=== PATIENT | female | born 1955 | race Caucasian/White ===

== ENCOUNTER 2021-02-10 14:29 | Emergency (ER) | payer OTHER, SELFPAY ==
[2021-02-10 14:38] VITALS: BP 127/79; PULSE 96; RESP 20; TEMP 37.3; O2SAT 98
--- NOTE | 2021-02-10 15:22 | ED.GENADULT ---
HPI - General Adult General Chief complaint: Neck Pain/Injury Stated complaint: neck pain Time Seen by Provider: 02/10/21 14:32 Source: patient Mode of arrival: ambulatory Limitations: no limitations History of Present Illness HPI narrative: 65 y/o female. Presents to [facility] today with acute complaints of RT side neck pain, worsening in the past 72 hours. Client describes a longstanding history of neck 'muscle issues', with prior cervical spinal fusion. She tells me she believes she may have slept on the area wrong. No fevers, nuchal rigidity. No falls or neck injury has been identified. Pain is worse with quick movements or turning head to RT., No midline or posterior spinal pain. She is without additional acute c/o illness upon PE. Related Data Home Medications Medication Instructions Recorded Confirmed gabapentin 300 mg PO TID 02/10/21 02/10/21 Allergies Allergy/AdvReac Type Severity Reaction Status Date / Time No Known Allergies Allergy Verified 02/10/21 15:18 Review of Systems Review of Systems: CONSTITUTIONAL: Denies fever, chills, sweats. EYES: Denies visual changes, redness, discharge. ENT: Denies rhinorrhea, congestion, sore throat, otalgia. CARDIOVASCULAR: Denies chest pain, palpitations, edema. RESPIRATORY: Denies dyspnea, wheezing, cough GASTROINTESTINAL: Denies abdominal pain, nausea, vomiting, diarrhea. GENITOURINARY: Denies dysuria, hematuria, abnormal discharge SKIN: Denies rash or itching. MUSCULOSKELETAL: RT side neck pain. Denies acute back pain, other joint pain, or myalgia. NEUROLOGIC: Denies numbness, or focal weakness. PSYCHIATRIC: Denies anxiety or depression. All systems reviewed & are unremarkable except as noted in HPI and below Exam Narrative: GENERAL: This is a well-nourished, well-developed adult, in no apparent distress. HEAD: normocephalic, atraumatic. EYES: PERRL. Sclera clear/white. EARS: External ears normal, auditory canals clear and without drainage, TMs normal. NOSE: External nose normal. Positive Rhinorrhea, no obstruction, nares patent. THROAT: Mucous membranes moist, posterior pharynx clear. No exudates. NECK: Neck supple, non-tender without lymphadenopathy, masses or thyromegaly. With reproducible muscle spasm RT trapezius. No midline spinal tenderness. Full ROM. No meningeal signs. CARDIOVASCULAR: Regular rate and rhythm without murmurs, gallops, or rubs. RESPIRATORY: Clear to auscultation. Breath sounds equal bilaterally. No wheezes, rales, or rhonchi. GASTROINTESTINAL: Abdomen soft, non-tender, nondistended. Bowel sounds are active. No guarding. SKIN: warm, intact with no suspicious lesions or rash, good texture and turgor. NEURO: Alert, active, and age appropriate. No focal neurologic deficits. EXTREMITIES: Negative. Course Vital Signs Vital signs: Vital Signs Temperature 37.3 C 02/10/21 14:38 Pulse Rate 96 02/10/21 14:38 Respiratory Rate 20 02/10/21 14:38 Blood Pressure 127/79 02/10/21 14:38 Pulse Oximetry 98 02/10/21 14:38 Temperature 37.3 C 02/10/21 14:38 Pulse Rate 96 02/10/21 14:38 Respiratory Rate 20 02/10/21 14:38 Blood Pressure 127/79 02/10/21 14:38 Pulse Oximetry 98 02/10/21 14:38 Medical Decision Making Differential Diagnosis Differential Diagnosis: Differential Diagnosis: Consideration of the following conditions may be warranted for the presenting problem, they are not final diagnoses: Muscle sprain, strain, contusion, Other bony disruption. Vital Signs Vital Signs: Vital Signs Temperature 37.3 C 02/10/21 14:38 Pulse Rate 96 02/10/21 14:38 Respiratory Rate 20 02/10/21 14:38 Blood Pressure 127/79 02/10/21 14:38 Pulse Oximetry 98 02/10/21 14:38 Temperature 37.3 C 02/10/21 14:38 Pulse Rate 96 02/10/21 14:38 Respiratory Rate 20 02/10/21 14:38 Blood Pressure 127/79 02/10/21 14:38 Pulse Oximetry 98 02/10/21 14:38 Critical Care Time
== END 2021-02-10 15:55 | disposition home or self-care (01) ==
PROVIDERS: Emergency Provider Nurse Practitioner Adult Health; PCP Family Medicine
DX: S16.1XXA Strain of muscle, fascia and tendon at neck level, initial encounter (principal); M62.838 Other muscle spasm; X58.XXXA Exposure to other specified factors, initial encounter
CPT/HCPCS: 99213; G0463

== ENCOUNTER 2021-04-23 08:31 | Outpatient (CLI) | payer OTHER, SELFPAY ==
--- NOTE | ~2021-04-23 | MM_ITS ---
EXAMINATION: MM screening claude BI w evaristo HISTORY: Screening TECHNIQUE: Craniocaudal and mediolateral oblique 3-D tomosynthesis images were obtained and synthetic 2-D images were generated. CAD analysis was submitted and interpreted. COMPARISON: No prior mammogram is available for comparison at this institution. BREAST PARENCHYMAL COMPOSITION: There are scattered areas of fibroglandular density. FINDINGS: There is no evidence of suspicious mass, calcification, or architectural distortion to sugg est malignancy in either breast. There has been no suspicious interval change. IMPRESSION: 1. No mammographic evidence of malignancy. 2. Recommend routine screening mammography in one year. BI-RADS Category 1: Negative Reviewed, dictated and finalized at location A. [employer]
== END 2021-04-23 08:32 | disposition home or self-care (01) ==
LOC: ANHIMG 08:33
PROVIDERS: PCP Family Medicine; Visit Provider Family Medicine
DX: Z12.31 Encounter for screening mammogram for malignant neoplasm of breast (principal)
CPT/HCPCS: 77063; 77067

== ENCOUNTER 2021-06-25 08:51 | Outpatient (CLI) | payer OTHER, SELFPAY ==
--- NOTE | 2021-06-25 11:15 | NEURO_ITS ---
Impression: # Complains of pain and numbness of upper extremities. # No Carpal Tunnel Syndrome or ulnar neuropathy. # Normal nerve conduction study. # Normal needle/EMG exam. # Clinical correlation recommended. Nerve Conduction Studies Anti Sensory Summary Table Stim Site NR Peak (ms) P-T Amp (?V) Site1 Site2 Delta-P (ms) Dist (cm) Pardeep (m/s) Left Median Anti Sensory (2-3nd Digit) Wrist 2.5 48.8 Wrist 2-3nd Digit 2.5 14.0 56 Wrist 2.5 48.9 Wrist 2-3nd Digit 2.5 14.0 56 Right Median Anti Sensory (2-3nd Digit) Wrist 2.6 15.4 Wrist 2-3nd Digit 2.6 14.0 54 Wrist 2.6 32.9 Wrist 2-3nd Digit 2.6 14.0 54 Left Radial Anti Sensory (Base 1st Digit) Wrist 2.0 16.9 Wrist Base 1st Digit 2.0 0.0 Right Radial Anti Sensory (Base 1st Digit) Wrist 2.6 9.0 Wrist Base 1st Digit 2.6 0.0 Left Ulnar Anti Sensory (5th Digit) Wrist 2.1 29.0 Wrist 5th Digit 2.1 14.0 67 Right Ulnar Anti Sensory (5th Digit) Wrist 2.2 23.8 Wrist 5th Digit 2.2 14.0 64 Motor Summary Table Stim Site NR Onset (ms) O-P Amp (mV) Site1 Site2 Delta-0 (ms) Dist (cm) Pardeep (m/s) Left Median Motor (Abd Poll Brev) Wrist 3.0 5.1 Elbow Wrist 4.8 27.0 56 Elbow 7.8 3.6 Right Median Motor (Abd Poll Brev) Wrist 3.0 5.0 Elbow Wrist 4.6 26.0 57 Elbow 7.6 4.1 Left Ulnar Motor (Abd Dig Minimi) Wrist 2.3 6.7 A Elbow Wrist 4.5 27.0 60 A Elbow 6.8 5.0 Right Ulnar Motor (Abd Dig Minimi) Wrist 3.1 6.1 A Elbow Wrist 4.6 26.0 57 A Elbow 7.7 5.2 F Wave Studies NR F-Lat (ms) L-R F-Lat (ms) Left Median (Mrkrs) (Abd Poll Brev) 26.25 0.23 Right Median (Mrkrs) (Abd Poll Brev) 26.02 0.23 Left Ulnar (Mrkrs) (Abd Dig Min) 27.33 0.16 Right Ulnar (Mrkrs) (Abd Dig Min) 27.49 0.16 EMG Side Muscle Nerve Root Ins Act Fibs Amp Dur Recrt Comment Right 1stDorInt Ulnar C8-T1 Nml Nml Nml Nml Nml Right Ext Indicis Radial (Post Int) C7-8 Nml Nml Nml Nml Nml Right Ext Digitorum Radial (Post Int) C7-8 Nml Nml Nml Nml Nml Right BrachioRad Radial C5-6 Nml Nml Nml Nml Nml Right PronatorTeres Median C6-7 Nml Nml Nml Nml Nml Right Abd Poll Brev Median C8-T1 Nml Nml Nml Nml Nml Left 1stDorInt Ulnar C8-T1 Nml Nml Nml Nml Nml Left Ext Indicis Radial (Post Int) C7-8 Nml Nml Nml Nml Nml Left Ext Digitorum Radial (Post Int) C7-8 Nml Nml Nml Nml Nml Left BrachioRad Radial C5-6 Nml Nml Nml Nml Nml Left PronatorTeres Median C6-7 Nml Nml Nml Nml Nml Left Abd Poll Brev Median C8-T1 Nml Nml Nml Nml Nml MTDD
== END 2021-06-25 08:52 | disposition home or self-care (01) ==
LOC: ANHNEURO 08:52
PROVIDERS: PCP Family Medicine; Visit Provider Family Medicine
DX: G56.23 Lesion of ulnar nerve, bilateral upper limbs (principal)
CPT/HCPCS: 95886; 95911

== ENCOUNTER 2021-08-14 15:49 | Emergency (ER) | payer OTHER, SELFPAY ==
[2021-08-14 15:55] VITALS: BP 181/76; PULSE 82; RESP 20; TEMP 35.9; O2SAT 100
[2021-08-14] MEDS: ONDANSETRON HCL ODT 4 MG TABLET PO (16:08)
[2021-08-14 16:12] LABS: Glucose Point of Care 105 mg/dl (65-105)
--- NOTE | 2021-08-14 16:23 | ED.NAVMDI ---
HPI - Nausea/Vomiting/Diarrhea General Chief complaint: Nausea/Vomiting/Diarrhea Stated complaint: nausea light headed weak Time Seen by Provider: 08/14/21 16:15 Source: patient Mode of arrival: ambulatory Limitations: no limitations History of Present Illness HPI Narrative: Ms. Narvaez is a 65-year-old female patient presenting to the clinic today with complaints of nausea, vomiting, lightheadedness, ,abdominal cramping, and weakness that began approximately 4 hours ago. She reports that prior to having this episode she ate some chicken nuggets and a fish fillet from [employer]. She denies any urinary symptoms fever or chills. She denies any known exposure to anyone with COVID, strep, or flu. She denies any back pain. History of prediabetes. No history of any bowel problems or surgeries. She denies any diarrhea and her last bowel movement was earlier today. Related Data Home Medications Medication Instructions Recorded Confirmed gabapentin 300 mg capsule 300 mg PO TID 02/10/21 08/14/21 levothyroxine 100 mcg tablet 100 mcg PO DAILY 08/14/21 08/14/21 Allergies Allergy/AdvReac Type Severity Reaction Status Date / Time No Known Allergies Allergy Verified 08/14/21 16:01 Review of Systems Review of Systems: Pertinent positives per HPI. Patient denies any fever, chills, rash, headache, visual changes, dizziness, cough, runny nose, sore throat, shortness of breath, chest pain, palpitations, diarrhea, constipation, or any urinary issues. PMFSH Comments At the time of my signature, I reviewed and agree with the nursing past medical, surgical, social, and family history. There is no relevant family history pertinent to the patient complaint. Exam Narrative: General: Well-developed, well nourished, in mild apparent distress. Head: Normocephalic, atraumatic. Cardio: Regular rate and rhythm, s1 and s2 normal, no murmur appreciated. Resp: Clear to auscultation bilaterally, no rhonchi, rales, wheezing or rubs. Abdomen: Soft, pliable, bowel sounds present in all quadrants, generalized tenderness to palpation all quadrants no organomegly, no CVAT tenderness. Neuro: Conscious alert and oriented x4, no focal deficits, purposeful movements of all extremities, bilateral upper extremities and lower extremities strong and equal, sitting in wheelchair Course Course Emergency Course: Portions of this record may have been created with voice recognition software. Level of Care: Express Care Visit Vital Signs Vital signs: Vital Signs Temperature 35.9 C L 08/14/21 15:55 Pulse Rate 82 08/14/21 15:55 Respiratory Rate 20 08/14/21 15:55 Blood Pressure 181/76 H 08/14/21 15:55 Pulse Oximetry 100 08/14/21 15:55 Oxygen Delivery Room Air 08/14/21 15:55 Temperature 35.9 C L 08/14/21 15:55 Pulse Rate 82 08/14/21 15:55 Respiratory Rate 20 08/14/21 15:55 Blood Pressure 181/76 H 08/14/21 15:55 Pulse Oximetry 100 08/14/21 15:55 Oxygen Delivery Room Air 08/14/21 15:55 Vital signs reviewed Transfer Transfered to: [place] Transportation: Other (Private car) Transfer rationale: Abdominal cramping, nausea, vomiting, dizziness, weakness. Accepting physician: Dr. Grullon Transfer comments: Transfer via private car MDM - Nausea/Vomiting/Diarrhea MDM Narrative Medical decision making narrative: At the time of visit patient was resting comfortably in a wheelchair. COVID and influenza testing was negative in the clinic. Blood sugar was obtained was 105 in the clinic. Oral Zofran 4 mg ODT given in the clinic and after 15 minutes patient stated that she was feeling slightly better. Still complaining of some dizziness so 25 mg of Antivert was given orally and patient immediately had emesis. Discussed the possibility of sending the patient to the hospital to get further labs/evaluation versus sending her home with some oral Zofran and oral meclizine and have her review the ED if symptoms worsen and pa
[2021-08-14] MEDS: MECLIZINE HCL 25 MG TABLET PO (16:33)
== END 2021-08-14 16:47 | disposition short-term general hospital (02) ==
LOC: EXPBETH 15:50
PROVIDERS: Emergency Provider Nurse Practitioner Family; PCP Family Medicine
DX: R11.2 Nausea with vomiting, unspecified (principal); R10.84 Generalized abdominal pain; R42 Dizziness and giddiness; Z20.822 Contact with and (suspected) exposure to COVID-19
CPT/HCPCS: 82948; 87426; 87804; 99213; A9270; C9803; G0463

== ENCOUNTER 2021-08-14 17:26 | Observation (INO) | payer OTHER, SELFPAY ==
--- NOTE | ~2021-08-14 | MR_ITS ---
EXAMINATION: MR brain/brain stem wo/w con DATE: 08/15/2021 12:08 INDICATION: Dizziness. TECHNIQUE: Magnetic resonance imaging (MRI) of the brain and brainstem was performed without and with 15 mL MultiHance intravenous contrast. COMPARISON: Head CT 08/14/2021 FINDINGS: There are scattered areas of nonspecific increased T2-weighted signal intensity in the cere bral white matter, which is within normal limits for the patient's age. There is no intracranial hemo rrhage, acute infarction, or abnormal intracranial mass lesion. The ventricles are normal in size. Th ere are likely changes of ocular lens replacement surgeries. The mastoid air cells are normal. There is mild mucosal thickening in the paranasal sinuses. IMPRESSION: 1. Normal aging brain. Reviewed, dictated and finalized at location A. IMPRESSION: 1. Normal aging brain.
--- NOTE | ~2021-08-14 | CT_ITS ---
EXAMINATION: CT brain wo con DATE: 08/14/2021 20:37 INDICATION: Dizziness TECHNIQUE: Computed tomography (CT) of the head was performed without intravenous contrast. The mA wa s adjusted according to patient size. Iterative reconstruction technique was employed. Exam dose: 60 5.33 mGy-cm total exam DLP. COMPARISON: None FINDINGS: Bilateral carotid siphon internal carotid artery calcifications are noted. No intracranial mass lesion or hemorrhage or cerebrovascular accident is evident. No midline shift or mass effect. Normal ventricular size. No subdural or epidural hematoma is detected. Symmetric internal auditory canals. Middle and inner ear apparatus appear unremarkable. No fracture or bone destruction of the cranial vault. Included paranasal sinuses and the mastoid air cells are normally developed and aerated. IMPRESSION: Cerebral atherosclerosis No acute intracranial abnormality Reviewed, dictated and finalized at Location [facility]. Reviewed, dictated and finalized at location A.
--- NOTE | ~2021-08-14 | CT_ITS ---
EXAMINATION: CT abdomen pelvis wo con DATE: 08/14/2021 22:36 INDICATION: Abdominal pain TECHNIQUE: Computed tomography (CT) of the abdomen and pelvis was performed without intravenous contr ast. Automated exposure control and iterative reconstruction technique were employed. Exam dose: 495 .67 mGy-cm total exam DLP. COMPARISON: None. FINDINGS: Minimal dependent atelectasis, left lower lobe.. Normal heart size. No pericardial or pleural effusion. Status post cholecystectomy. No bile duct or pancreatic duct dilatation. No hepatic, splenic, pancrea tic, and adrenal or renal space-occupying mass lesion is evident on this limited noncontrast examinat ion. No urinary tract calculus or hydroureteronephrosis. There is atherosclerotic calcification but normal caliber of the abdominal aorta. There are shotty nonenlarged gastrohepatic, aortocaval, periaortic lymph nodes. Bilateral external iliac lymph nodes, measuring up to 7.5 x 12.3 mm right and 7.3 x 10.7 mm on the le ft. Small fat-containing umbilical hernia. The urinary bladder is evacuated, with minimal air in the lumen. Status post hysterectomy. Normal appendix. No bowel obstruction or intraperitoneal free air. 8 mm sclerotic lesion of T10 vertebral body, likely a bone island. Severe degenerative disc disease at L5-S1. IMPRESSION: Nonspecific shotty nonenlarged gastrohepatic, aortocaval, periaortic, external iliac lym ph nodes Status post cholecystectomy Status post hysterectomy Normal appendix Reviewed, dictated and finalized at [facility]. Reviewed, dictated and finalized at location A. IMPRESSION: Nonspecific shotty nonenlarged gastrohepatic, aortocaval, periaort ic, external iliac lymph nodes Status post cholecystectomy Status post hysterectomy Normal appendix
[2021-08-14 17:41] VITALS: BP 164/65; PULSE 75; RESP 18; TEMP 36.2; O2SAT 99
[2021-08-14 18:12] LABS: Basophils Absolute Auto 0.1 K/mm3 (0.0-0.1); Basophils Percent Auto 0.5 % (0.2-1.2); Eosinophils Percent Auto 0.3 % (0-4.4); Hematocrit 40.7 % (37.0-47.0); Hemoglobin 13.1 g/dL (12.0-15.0); Immature Granulocyte Absolute 0.03 K/mm3 (0.00-0.031); Immature Granulocyte Percent A 0.3 % (0-0.5); Lymphocytes Absolute Auto 1.17 K/mm3 (0.9-3.2); Lymphocytes Percent Auto 11.2 % (18.3-44.2); Mean Corpuscular HGB Conc 32.2 g/dl (32-36); Mean Corpuscular Hemoglobin 29.3 pg (26-34); Mean Corpuscular Volume 91.1 fl (80-100); Mean Platelet Volume 10.5 fl (7.4-10.4); Monocytes Absolute Auto 0.5 K/mm3 (0.1-0.6); Neutrophils Absolute Auto 8.6 K/mm3 (1.3-6.7); Neutrophils Percent Auto 82.7 % (45.5-73.1); Platelet Count Result 169 k/mm3 (150-375); Red Blood Count 4.47 M/mm3 (4.2-5.4); Red Cell Distribution Width 13.2 % (11.5-14.5); White Blood Count 10.4 K/mm3 (4.5-10.0)
[2021-08-14 18:22] LABS: Alanine Aminotransferase 42 U/L (6-35); Albumin Level 4.2 g/dL (3.5-5.1); Alkaline Phosphatase 168 U/L (38-126); Anion Gap 4 mmol/L (8-16); Aspartate Amino Transferase 39 U/L (14-36); Bilirubin,Total 0.4 mg/dL (0.2-1.3); Blood Urea Nitrogen 16 mg/dL (7-17); Calcium 8.7 mg/dL (8.4-10.2); Carbon Dioxide 28 mmol/L (22-30); Chloride 109 mmol/L (98-107); Estimated CRCL calculation 87 ml/min; Estimated Glomerular Filt Rate > 60; Glucose 107 mg/dL (65-110); Lipase 97 U/L (23-300); Potassium 4.5 mmol/L (3.4-5.0); Sodium 141 mmol/L (137-145)
[2021-08-14 20:08] VITALS: BP 160/77; PULSE 73; RESP 18; O2SAT 99
--- NOTE | 2021-08-14 20:25 | ED.NAVMDI ---
HPI - Nausea/Vomiting/Diarrhea General Chief complaint: Nausea/Vomiting/Diarrhea Stated complaint: n/v, headache Time Seen by Provider: 08/14/21 20:15 History of Present Illness HPI Narrative: Pt states that this afternoon while shopping she became lightheaded and dizzy and then began vomiting. Pt has mild frontal GARCES. Pt says the dizziness is worse when she turns her head back and forth and when she moves her eyes. Pt denies diarrhea. Pt has some mild epigastric abdominal pain. Related Data Home Medications Medication Instructions Recorded Confirmed gabapentin 300 mg capsule 300 mg PO TID 02/10/21 08/14/21 levothyroxine 100 mcg tablet 100 mcg PO DAILY 08/14/21 08/14/21 Allergies Allergy/AdvReac Type Severity Reaction Status Date / Time No Known Allergies Allergy Verified 08/14/21 16:01 Review of Systems Review of Systems: All systems reviewed & are unremarkable except as noted in HPI and below Exam Const: General: healthy appearing Nutritional Appearance: well nourished Orientation/consciousness: patient oriented x3 Limitations: no limitations HENMT: Head: normal to inspection Ears: external ears normal and TM's normal bilaterally (right TM bulging slightly) Mouth: Yes Normal oral and palatal mucosa present Eyes: Conjunctivae: conjunctivae normal Pupils: Equal, round and reactive pupils present EOM: EOMs intact bilaterally Neck: Neck: normal visual inspection Resp: Effort & Inspection: normal respiratory effort Auscultation: clear to auscultation bilaterally Cardio: Rate: regular rate Rhythm: regular rhythm GI: GI Palp: Yes Soft to palpation Auscultation: normal bowel sounds Skin: General skin exam: normal color Rashes: no rashes Neuro: General: patient oriented x3, moves all extremities, no meningeal signs, no focal motor deficits and CN's II-XI intact bilaterally Speech: normal speech Gait exam (Neuro): Normal gait present Other: dizziness reproduced with movement of head and fatigues when still Extrem: General: normal to inspection and no clubbing, cyanosis or edema Psych: Mental Status: mental status grossly normal Affect: normal affect Attitude: cooperative Course Course Emergency Course: tried to ambulate patient and very unsteady, concerned about safety at home. Family concerned as well. Dr Delgado came and saw patient and attempted a maneuver to open eustacian tubes to help with vertigo symptoms. pt complaining of abdominal pain moreso now, will CT abd and see how vertigo responds recheck, pt still very unsteady when trying to walk, would prefer staying in hospital overnight. Will discuss with dr delgado. dr delgado agrees to admit to observation, would like to try valium 5mg and decadron IVP Vital Signs Vital signs: Vital Signs Temperature 97.2 F L 08/14/21 17:41 Pulse Rate 75 08/14/21 17:41 Respiratory Rate 18 08/14/21 17:41 Blood Pressure 164/65 H 08/14/21 17:41 Pulse Oximetry 99 08/14/21 17:41 Oxygen Delivery Room Air 08/14/21 17:41 Temperature 97.2 F L 08/14/21 17:41 Pulse Rate 88 08/14/21 21:46 Respiratory Rate 22 H 08/14/21 21:36 Blood Pressure 162/80 H 08/14/21 21:46 Pulse Oximetry 99 08/14/21 21:36 Oxygen Delivery Room Air 08/14/21 17:41 MDM - Nausea/Vomiting/Diarrhea Lab Data Result diagrams: 08/14/21 18:06 08/14/21 18:06 Labs: Lab Results 08/14/21 08/14/21 08/14/21 Range/Units 18:06 18:06 20:16 WBC 10.4 H (4.5-10.0) K/mm3 RBC 4.47 (4.2-5.4) M/mm3 Hgb 13.1 (12.0-15.0) g/dL Hct 40.7 (37.0-47.0) % MCV 91.1 (80-100) fl MCH 29.3 (26-34) pg MCHC 32.2 (32-36) g/dl RDW 13.2 (11.5-14.5) % Plt Count 169 (150-375) k/mm3 MPV 10.5 H (7.4-10.4) fl Immature Gran % (Auto) 0.3 (0-0.5) % Neut % (Auto) 82.7 H (45.5-73.1) % Lymph % (Auto) 11.2 L (18.3-44.2) % Meagher % (Auto) 5.0 (2.6-8.5) % Eos % (Auto) 0.3 (0-4.4) % Baso % (Auto)
[2021-08-14 20:27] LABS: Appearance Urine Clear (Clear); Bilirubin Urine Negative (Negative); Blood Urine Negative (Negative); Color Urine Yellow (Yellow); Glucose Urine UA Negative (Negative); Ketones Urine Negative (Negative); Leukocyte Esterase Ur Negative LEU/UL (Negative); Nitrate Urine Negative (Negative); Protein Urine Trace mg/dL (Negative)
[2021-08-14 20:35] LABS: Mucus Urine Rare /lpf; RBC Urine 0-2 /hpf (0-2); Squamous Epithelial Cell Urine Rare /hpf (Few); WBC Urine 0-3 /hpf
[2021-08-14 20:37] LABS: Add Urine Microscopic? YES
[2021-08-14] MEDS: ONDANSETRON INJ 4 MG/2 ML VIAL IV PUSH (21:00)
[2021-08-14] MEDS: MECLIZINE HCL 25 MG TABLET 50 MG PO (21:00)
[2021-08-14 21:36] VITALS: BP 137/66; PULSE 88; RESP 22; O2SAT 99
[2021-08-14 21:42] VITALS: BP 141/77; PULSE 84
[2021-08-14 21:44] VITALS: BP 141/69; PULSE 80
[2021-08-14 21:46] VITALS: BP 162/80; PULSE 88
--- NOTE | 2021-08-14 22:32 | PC.NURSE ---
Pt to CT via stretcher at this time.
--- NOTE | 2021-08-14 23:03 | PC.NURSE ---
Report given to Gwendolyn QUINONES at this time.
--- NOTE | 2021-08-14 23:38 | PM.IMHP ---
H&P: HPI History of Present Illness Date/Time: 08/14/21 22:00 Chief Complaint: Nausea vomiting, dizziness and abdominal pain Narrative: 65-year-old female with past medical history of hypothyroidism and Review of Systems Review of Systems: 12 systems were reviewed with pertinent positives and negatives per HPI. Except as documented in the HPI, all other systems were reviewed and are negative. [facility] Past Medical History Medical History (Updated 08/15/21 @ 07:41 by Queta Andersen DO) Fibromyalgia Hypothyroidism Surgical History Surgical History (Updated 08/15/21 @ 07:41 by Queta Andersen DO) History of hysterectomy Hx of cholecystectomy Family History Family History Mother Hepatitis Liver cirrhosis Social History Social History Smoking status: Never smoker Alcohol intake: never Substance use: never Spiritual care concerns: No Meds Home Medications and Allergies Home Medications Medication Instructions Recorded Confirmed Type gabapentin 300 mg capsule 900 mg PO TID 02/10/21 08/15/21 History levothyroxine 100 mcg tablet 100 mcg PO DAILY 08/14/21 08/15/21 History ibuprofen 200 mg tablet 600 mg PO Q8H PRN Pain 08/15/21 08/15/21 History Allergies Allergy/AdvReac Type Severity Reaction Status Date / Time No Known Allergies Allergy Verified 08/14/21 16:01 Vital Signs Vital Signs - 24 hr 08/14/21 17:41 08/14/21 20:08 08/14/21 21:36 Temperature 97.2 F L Pulse Rate 75 73 88 Respiratory Rate 18 18 22 H Blood Pressure 164/65 H 160/77 H 137/66 Pulse Oximetry 99 99 99 Oxygen Delivery Room Air 08/14/21 21:42 08/14/21 21:44 08/14/21 21:46 Temperature Pulse Rate 84 80 88 Respiratory Rate Blood Pressure 141/77 H 141/69 H 162/80 H Pulse Oximetry Oxygen Delivery Exam Narrative: Weight 72.8 kg BMI 30.3 Const: Other: No acute distress, well-developed well-nourished, appears stated age HENMT: Other: Edentulous, head is normocephalic atraumatic, mucous membranes are tacky Eyes: Other: Pupils are equal and reactive, no scleral icterus, no conjunctival pallor, extraocular movements intact Neck: Other: No tender submandibular or anterior cervical lymphadenopathy, no thyromegaly Chest: Other: Clear to auscultation bilaterally, no increased work of breathing Cardio: Other: Regular rate, regular rhythm, 2+ bilateral radial pedal pulses, no JVD GI: Other: Generalized tenderness to palpation, soft, normoactive bowel sounds, no organomegaly Skin: Other: Mild pallor, non jaundice Neuro: Other: Alert and oriented, speech is clear, extraocular movements intact, no gross motor deficits, cranial nerves 2-12 grossly intact Extrem: Other: Equal actuarial technician strength bilaterally, equal lower extremities drink, no clubbing, cyanosis or edema Psych: Other: Appropriate mood and affect, pleasant and cooperative H&P: Results Labs Labs: Laboratory Tests 08/14/21 18:06 08/14/21 18:06 08/14/21 08/14/21 08/14/21 18:06 18:06 20:16 WBC 10.4 H RBC 4.47 Hgb 13.1 Hct 40.7 MCV 91.1 MCH 29.3 MCHC 32.2 RDW 13.2 Plt Count 169 MPV 10.5 H Immature Gran % (Auto) 0.3 Neut % (Auto) 82.7 H Lymph % (Auto) 11.2 L Hernando % (Auto) 5.0 Eos % (Auto) 0.3 Baso % (Auto) 0.5 Lymph # (Auto) 1.17 [place]ando # (Auto) 0.5 Eos # (Auto) 0.0 Baso # (Auto) 0.1 Abs Immat Gran (auto) 0.03 Absolute Neuts (auto) 8.6 H Absolute Nucleated RBC 0.0 Nucleated RBC % 0.0 Sodium 141 Potassium 4.5 Chloride 109 H Carbon Dioxide 28 Anion Gap 4 L BUN 16 Creatinine 0.50 L Estim Creat Clear Calc 87 Estimated GFR > 60 Glucose 107 Calcium 8.7 Total Bilirubin 0.4 AST 39 H ALT 42 H Alkaline Phosphatase 168 H Total Protein 9.0 H Albumin
[2021-08-15] MEDS: diazePAM INJ (*CRX) 10 MG/2 ML SYRINGE 5 MG IV PUSH (00:40)
[2021-08-15] MEDS: SODIUM CHLORIDE 0.9% IV 1,000 ML 150 ML IV CONT (00:40)
[2021-08-15 01:20] VITALS: BP 128/89; PULSE 75; RESP 16; O2SAT 98
[2021-08-15 01:24] LABS: Influenza A QL RT-PCR Negative (Negative); Influenza B QL RT-PCR Negative (Negative); SARS-CoV-2 RNA PCR Negative
--- NOTE | 2021-08-15 01:39 | ADMGEN ---
This patient, Pili Narvaez, was admitted to Medical Room 348-01. Patient/family oriented to hospital policies and general routines including ID bracelet, bed and alarms, visiting hours, pain management, procedures, bathroom and other care routines, personal items, smoking policy, room service/diet, and visiting hours. Information on how to activate the Rapid Response Team has been discussed. Patient/Family are encouraged to report perceived risks to care and to ask questions if they do not understand what they are told or what they should do.
[2021-08-15 01:48] VITALS: BMI 30.3
[2021-08-15 01:49] VITALS: BP 147/66; PULSE 73; RESP 18; TEMP 37; O2SAT 98
[2021-08-15 06:00] VITALS: BP 143/64; PULSE 72; RESP 20; TEMP 36.4; O2SAT 98
[2021-08-15 06:49] LABS: Basophils Percent Auto 0.3 % (0.2-1.2); Immature Granulocyte Absolute 0.04 K/mm3 (0.00-0.031); Immature Granulocyte Percent A 0.5 % (0-0.5); Lymphocytes Absolute Auto 0.73 K/mm3 (0.9-3.2); Lymphocytes Percent Auto 9.5 % (18.3-44.2); Mean Corpuscular HGB Conc 32.5 g/dl (32-36); Mean Corpuscular Hemoglobin 29.2 pg (26-34); Mean Corpuscular Volume 89.9 fl (80-100); Mean Platelet Volume 10.6 fl (7.4-10.4); Monocytes Percent Auto 0.5 % (2.6-8.5); Neutrophils Absolute Auto 6.8 K/mm3 (1.3-6.7); Neutrophils Percent Auto 89.2 % (45.5-73.1); Platelet Count Result 175 k/mm3 (150-375); Red Blood Count 4.45 M/mm3 (4.2-5.4); Red Cell Distribution Width 12.9 % (11.5-14.5); White Blood Count 7.7 K/mm3 (4.5-10.0)
[2021-08-15 07:06] LABS: Alanine Aminotransferase 34 U/L (6-35); Albumin Level 3.8 g/dL (3.5-5.1); Alkaline Phosphatase 128 U/L (38-126); Anion Gap 3 mmol/L (8-16); Aspartate Amino Transferase 31 U/L (14-36); Bilirubin,Total 0.4 mg/dL (0.2-1.3); Blood Urea Nitrogen 13 mg/dL (7-17); Calcium 8.6 mg/dL (8.4-10.2); Carbon Dioxide 26 mmol/L (22-30); Chloride 111 mmol/L (98-107); Estimated CRCL calculation 88 ml/min; Estimated Glomerular Filt Rate > 60; Glucose 141 mg/dL (65-110); Sodium 140 mmol/L (137-145)
[2021-08-15 07:51] VITALS: PULSE 89; O2SAT 96
[2021-08-15] MEDS: SODIUM CHLORIDE 0.9% IV 1,000 ML 125 ML IV CONT ×2 (09:38→18:51)
[2021-08-15] MEDS: FLUTICASONE PROPIONATE 0.05% NA SPR 16 GM BTL (*BKC) 2 SPRAY NASAL (09:45)
[2021-08-15] MEDS: ENOXAPARIN 40 MG/0.4 ML SYRINGE SUB-Q (09:47)
[2021-08-15] MEDS: LEVOTHYROXINE SODIUM 100 MCG TABLET PO (09:47)
[2021-08-15] MEDS: predniSONE 20 MG TABLET 40 MG PO (09:48)
[2021-08-15] MEDS: GABAPENTIN 300 MG CAPSULE 900 MG PO ×3 (09:50→18:52)
[2021-08-15] MEDS: MECLIZINE HCL 25 MG TABLET PO ×3 (09:51→18:52)
[2021-08-15 10:30] LABS: Hepatitis B Surface Antigen Negative (Negative)
[2021-08-15 10:48] LABS: Hepatitis C Virus Antibody Negative (Negative)
[2021-08-15 10:56] LABS: HAV RESULT Negative (Negative); Hepatitis B Core IgM Result Negative (Negative)
[2021-08-15] MEDS: ACETAMINOPHEN 325 MG TABLET 650 MG PO (13:29)
[2021-08-15 14:00] VITALS: BP 136/71; PULSE 102; RESP 18; TEMP 37; O2SAT 99
--- NOTE | 2021-08-15 14:15 | PM.IMPN ---
Progress Note: A&P Assessment and Plan (1) Vertigo: Code(s): R42 - Dizziness and giddiness Status: Acute (2) Intractable nausea and vomiting: Code(s): R11.2 - Nausea with vomiting, unspecified Status: Acute (3) Generalized abdominal pain: Code(s): R10.84 - Generalized abdominal pain Status: Acute (4) Recent URI: Code(s): J06.9 - Acute upper respiratory infection, unspecified Status: Acute (5) Eustachian tube dysfunction: Code(s): H69.80 - Other specified disorders of Eustachian tube, unspecified ear Status: Acute Plan Vertigo peripheral in nature likely due to eustachian tube dysfunction verses a viral labyrinthitis given recent rhinorrhea and frontal sinus pressure and nasal congestion. Soundly the patient may have had a recent URI causing viral pathology. Patient received a dose of meclizine and Zofran in the ER with no improvement in her symptoms. I evaluated the patient in the ER and performed manipulation of the patient's eustachian tube. This decreased the bulge of the patient's right tympanic membrane but some vertigo persisted. Patient subsequently received a dose of IV Decadron and volume in the ER. I did denies get chance to re-evaluate the patient after these medications. The patient was admitted for IV fluid hydration due to persistent nausea due to vertigo. Medically stain has been scheduled. The patient is having generalized abdominal pain has CT of the abdomen pelvis which demonstrated nonspecific shotty lymphadenopathy. I suspect the patient's abdominal pain is more due to her recent vomiting from her vertigo. Will provide p.r.n. Tylenol for patient's abdominal pain and continue IV fluids. 08/15/2021 interval history: patient continue to have symptoms and aggravated activity and complaint of nausea which is somewhat improved, patient states her visual acuity has also reduce after she had cataract surgery, CT scan of the head is negative for any acute injury further evaluate will do the MRI of the brain consult neurologist for further recommendation, patient abdominal pain is improved and had a CT scan of abdomen did not show any acute pathology, being treated with meclizine, there is also concern the patient symptoms are stemming from eustachian tube dysfunction patient was given a time dose of dexamethasone in ER continue prednisone, will start the patient on clear liquid and advance her diet as tolerated, will continue to monitor the PT OT evaluate the and further recommendation to follow, Patient has been admitted as observation status. Subjective Date/time seen: 08/15/21 14:15 HPI-planning Vertigo peripheral in nature likely due to eustachian tube dysfunction verses a viral labyrinthitis given recent rhinorrhea and frontal sinus pressure and nasal congestion.? Soundly the patient may have had a recent URI causing viral pathology.? Patient received a dose of meclizine and Zofran in the ER with no improvement in her symptoms.? I evaluated the patient in the ER and performed manipulation of the patient's eustachian tube.? This decreased the bulge of the patient's right tympanic membrane but some vertigo persisted.? Patient subsequently received a dose of IV Decadron and volume in the ER.? I did denies get chance to re-evaluate the patient after these medications.? The patient was admitted for IV fluid hydration due to persistent nausea due to vertigo.? Medically stain has been scheduled. The patient is having generalized abdominal pain has CT of the abdomen pelvis which demonstrated nonspecific shotty lymphadenopathy.? I suspect the patient's abdominal pain is more due to her recent vomiting from her vertigo.? Will provide p.r.n. Tylenol for patient's abdominal pain and continue IV fluids. 08/15/2021 interval history: patient continue to have symptoms and aggravated activity and complaint of nausea which is somewhat improved, patient states her visual a
--- NOTE | 2021-08-15 14:23 | WPDNEURCNPN ---
Assessment and Plan Assessment and plan (1) Vestibulopathy: Code(s): H81.90 - Unspecified disorder of vestibular function, unspecified ear Status: Acute Plan 1. Bedrest 2. Treatment as such 3. Possibility of the posterior circulation TIA and posterior circulation involvement has been ruled out with negative MRI of the brain will re-examine her tomorrow in the meantime she will need the medication as such Consult date: 08/15/21 Time Seen: 12:30 Reason for consult: dizziness HPI: Pili Narvaez is a 65 year old female admitted to the hospital through the emergency room where she came with the complaints of nausea vomiting and headache in addition to sensation of lightheadedness and dizziness with specific command that she becomes more dizzy when she turns her head back and forth, patient has been taking gabapentin 300 mg 3 times a day in addition to levothyroxine 100 micro g daily reportedly she is not allergic to any medication initial examination in the emergency room revealed her to be extremely dizzy with movement of the head, her vital signs were stable except blood pressure 162/80, routine lab was normal initial CT scan of the head was with only atherosclerotic changes and MRI of the brain was also normal CT scan of the abdomen done because of the complaints of abdominal discomfort which revealed nonspecific non enlarged gas to hepatic aorto caval and andres aortic lymph nodes Review of Systems Review of Systems: All systems reviewed & are unremarkable except as noted in HPI and below PMFSH Past Medical History Medical History (Updated 08/15/21 @ 14:32 by Gabriel Zavala MD) Fibromyalgia Hypothyroidism Surgical History Surgical History (Updated 08/15/21 @ 07:41 by Queta Andersen DO) History of hysterectomy Hx of cholecystectomy Family History Family History Mother Hepatitis Liver cirrhosis Social History Social History Smoking status: Never smoker Alcohol intake: never Substance use: never Spiritual care concerns: No Meds Home Medications and Allergies Home Medications Medication Instructions Recorded Confirmed Type gabapentin 300 mg capsule 900 mg PO TID 02/10/21 08/15/21 History levothyroxine 100 mcg tablet 100 mcg PO DAILY 08/14/21 08/15/21 History ibuprofen 200 mg tablet 600 mg PO Q8H PRN Pain 08/15/21 08/15/21 History Allergies Allergy/AdvReac Type Severity Reaction Status Date / Time No Known Allergies Allergy Verified 08/14/21 16:01 Vital Signs Vital Signs - 24 hr 08/14/21 17:41 08/14/21 20:08 08/14/21 21:36 Temperature 36.2 C L Pulse Rate 75 73 88 Respiratory Rate 18 18 22 H Blood Pressure 164/65 H 160/77 H 137/66 Pulse Oximetry 99 99 99 Oxygen Delivery Room Air 08/14/21 21:42 08/14/21 21:44 08/14/21 21:46 Temperature Pulse Rate 84 80 88 Respiratory Rate Blood Pressure 141/77 H 141/69 H 162/80 H Pulse Oximetry Oxygen Delivery 08/15/21 01:20 08/15/21 01:49 08/15/21 06:00 Temperature 37.0 C 36.4 C Pulse Rate 75 73 72 Respiratory Rate 16 18 20 Blood Pressure 128/89 147/66 H 143/64 H Pulse Oximetry 98 98 98 Oxygen Delivery 08/15/21 07:51 08/15/21 08:45 Temperature Pulse Rate 89 Respiratory Rate Blood Pressure Pulse Oximetry 96 Oxygen Delivery Room Air Room Air Exam Narrative: revealed her to be awake alert cooperative, head normocephalic with no cranial bruit, ear nose throat examination normal with left and point couple of beats nystagmus, neck supple with no cervical bruit no thyromegaly no lymphadenopathy, heart regular with no murmur, lungs clear with no rhonchi or crepitations, abdomen is soft nontender with no organomegaly neurological examination revealed her to be awake alert oriented x3, his speech nor dysphasic no dysarthric not dysphonic, pupils round regular reactin
[2021-08-15 20:27] VITALS: BP 142/73; PULSE 99; RESP 20; TEMP 36.8; O2SAT 99
--- NOTE | 2021-08-16 | ECHO_ITS ---
Patient Info Name: Pili Narvaez Age: 65 years : 1955 Gender: Female Ht: 61 in Wt: 160 lbs BSA: 1.79 m2 HR: 82 bpm BP: 141 / 75 mmHg Technical Quality: Good Exam Date: 08/16/2021 7:06 AM Exam Location: [facility] Patient Status: Inpatient Admit Date: 08/14/2021 Staff Ordering Physician: René Gardner MD Integration Consultant: Brenna Dugan RDCS Attending Provider: Queta Andersen DO Exam Type: CA echo doppler color flow Study Info Indications R42 - Dizziness and giddiness Complete two-dimensional, color flow and Doppler transthoracic echocardiogram is performed. Summary 1. Complete two-dimensional, color flow and Doppler transthoracic echocardiogram is performed. 2. Left ventricular chamber dimension is normal. 3. Left ventricular systolic function is normal, estimated at 55-60%. 4. The left ventricular diastolic function is grade I diastolic dysfunction. 5. E/e' 11 is mildly elevated. 6. There is mild aortic valve regurgitation. 7. There is mild to moderate mitral valve regurgitation. 8. There is trace tricuspid valve regurgitation. 9. No pulmonary hypertension, estimated pulmonary arterial systolic pressure is 21 mmHg. Left Ventricle E/e' 11 is mildly elevated. Left ventricular chamber dimension is normal. Left ventricular systolic function is normal, estimated at 55-60%. The left ventricular diastolic function is grade I diastolic dysfunction. Right Ventricle Right ventricular systolic function is normal and with normal TAPSE 1.9 cm. Right ventricular chamber dimension is normal. Left Atria Left atrial chamber dimension is normal. Right Atria Right atrial chamber dimension is normal. Aortic Valve The aortic valve is probable trileaflet. There is no aortic valve stenosis. There is mild aortic valve regurgitation. Pulmonic Valve There is no pulmonic regurgitation. Mitral Valve There is no mitral valve stenosis. There is mild to moderate mitral valve regurgitation. Tricuspid Valve There is trace tricuspid valve regurgitation. No pulmonary hypertension, estimated pulmonary arterial systolic pressure is 21 mmHg. Pericardium/Pleural There is no pericardial effusion. Inferior Vena Cava Normal inferior vena cava with >50% collapse upon inspiration consistent with normal right atrial pressure, 5 mmHg. Aorta The aortic root size at the sinus of Valsalva is normal. Left Ventricular Outflow Tract Name Value Normal LVOT 2D LVOT Diameter 2.1 cm LVOT Doppler LVOT Peak Gradient 3 mmHg LVOT Mean Gradient 2 mmHg LVOT VTI 22 cm LVOT VTI/AV VTI Ratio 0.7 LVOT Stroke Volume 75 ml LVOT CO 12.0 l/min LVOT CI 6.7 l/min/m2 Pulmonic Valve Name Value Normal PV Doppler ---
[2021-08-16] MEDS: SODIUM CHLORIDE 0.9% IV 1,000 ML 125 ML IV CONT ×3 (02:22→20:20)
[2021-08-16] MEDS: LEVOTHYROXINE SODIUM 100 MCG TABLET PO (05:50)
[2021-08-16 06:15] VITALS: BP 141/75; PULSE 94; RESP 16; TEMP 37.1; O2SAT 98
[2021-08-16 07:59] LABS: Glucose Point of Care 103 mg/dl (65-105)
[2021-08-16] MEDS: ACETAMINOPHEN 325 MG TABLET 650 MG PO (08:49)
[2021-08-16] MEDS: predniSONE 20 MG TABLET 40 MG PO (08:49)
[2021-08-16] MEDS: FLUTICASONE PROPIONATE 0.05% NA SPR 16 GM BTL (*BKC) 2 SPRAY NASAL (08:50)
[2021-08-16] MEDS: GABAPENTIN 300 MG CAPSULE 900 MG PO ×3 (08:50→17:50)
[2021-08-16] MEDS: ENOXAPARIN 40 MG/0.4 ML SYRINGE SUB-Q (08:50)
[2021-08-16] MEDS: MECLIZINE HCL 25 MG TABLET PO ×3 (08:50→17:50)
[2021-08-16 11:32] LABS: Glucose Point of Care 117 mg/dl (65-105)
[2021-08-16 14:00] VITALS: BP 135/53; PULSE 76; RESP 16; TEMP 37.2; O2SAT 99
--- NOTE | 2021-08-16 14:15 | PM.IMPN ---
Progress Note: A&P Assessment and Plan (1) Vertigo: Code(s): R42 - Dizziness and giddiness Status: Acute (2) Intractable nausea and vomiting: Code(s): R11.2 - Nausea with vomiting, unspecified Status: Acute (3) Generalized abdominal pain: Code(s): R10.84 - Generalized abdominal pain Status: Acute (4) Recent URI: Code(s): J06.9 - Acute upper respiratory infection, unspecified Status: Acute (5) Eustachian tube dysfunction: Code(s): H69.80 - Other specified disorders of Eustachian tube, unspecified ear Status: Acute Plan Vertigo peripheral in nature likely due to eustachian tube dysfunction verses a viral labyrinthitis given recent rhinorrhea and frontal sinus pressure and nasal congestion. Soundly the patient may have had a recent URI causing viral pathology. Patient received a dose of meclizine and Zofran in the ER with no improvement in her symptoms. I evaluated the patient in the ER and performed manipulation of the patient's eustachian tube. This decreased the bulge of the patient's right tympanic membrane but some vertigo persisted. Patient subsequently received a dose of IV Decadron and volume in the ER. I did denies get chance to re-evaluate the patient after these medications. The patient was admitted for IV fluid hydration due to persistent nausea due to vertigo. Medically stain has been scheduled. The patient is having generalized abdominal pain has CT of the abdomen pelvis which demonstrated nonspecific shotty lymphadenopathy. I suspect the patient's abdominal pain is more due to her recent vomiting from her vertigo. Will provide p.r.n. Tylenol for patient's abdominal pain and continue IV fluids. 08/15/2021 interval history: patient continue to have symptoms and aggravated activity and complaint of nausea which is somewhat improved, patient states her visual acuity has also reduce after she had cataract surgery, CT scan of the head is negative for any acute injury further evaluate will do the MRI of the brain consult neurologist for further recommendation, patient abdominal pain is improved and had a CT scan of abdomen did not show any acute pathology, being treated with meclizine, there is also concern the patient symptoms are stemming from eustachian tube dysfunction patient was given a time dose of dexamethasone in ER continue prednisone, will start the patient on clear liquid and advance her diet as tolerated, will continue to monitor the PT OT evaluate the and further recommendation to follow. 08/16/2021 interval history: patient continue to have symptoms and aggravated with activity and complaint of nausea which is somewhat improved, but unable to tolerate p.o. patient states her visual acuity has also reduce after she had cataract surgery, CT scan of the head is negative for any acute injury further evaluate, to further evaluate patient had MRI of the brain which is negative and ruled out posterior cerebral circulation stroke seen by neurologist, , patient abdominal pain is improved and had a CT scan of abdomen did not show any acute pathology, being treated with meclizine, there is also concern the patient symptoms are stemming from eustachian tube dysfunction patient was given one time dose of dexamethasone in ER continued prednisone, will start the patient on clear liquid and advance her diet as tolerated, will continue to monitor the PT OT evaluate the and further recommendation to follow, Patient has been admitted as observation status. Subjective Date/time seen: 08/16/21 14:15 08/16/2021 interval history: patient continue to have symptoms and aggravated with activity and complaint of nausea which is somewhat improved, but unable to tolerate p.o. patient states her visual acuity has also reduce after she had cataract surgery, CT scan of the head is negative for any acute injury further evaluate, to further evaluate patient had MRI of the b
[2021-08-16 20:46] VITALS: BP 133/59; PULSE 66; RESP 20; TEMP 36.9; O2SAT 98
[2021-08-17] MEDS: SODIUM CHLORIDE 0.9% IV 1,000 ML 125 ML IV CONT (04:55)
[2021-08-17 06:00] VITALS: BP 151/66; PULSE 65; RESP 16; TEMP 36.7; O2SAT 99
[2021-08-17] MEDS: LEVOTHYROXINE SODIUM 100 MCG TABLET PO (06:39)
[2021-08-17] MEDS: ENOXAPARIN 40 MG/0.4 ML SYRINGE SUB-Q (08:00)
[2021-08-17] MEDS: GABAPENTIN 300 MG CAPSULE 900 MG PO ×2 (08:01→12:03)
[2021-08-17] MEDS: MECLIZINE HCL 25 MG TABLET PO ×2 (08:01→12:03)
[2021-08-17] MEDS: predniSONE 20 MG TABLET 40 MG PO (08:01)
[2021-08-17] MEDS: FLUTICASONE PROPIONATE 0.05% NA SPR 16 GM BTL (*BKC) 2 SPRAY NASAL (08:02)
--- NOTE | 2021-08-17 10:01 | PM.DS ---
DS: Admitting Diagnosis Discharge Date 08/17/2021 Admitting Diagnosis dizziness nausea or vomiting DS: Discharge Diagnosis Discharge Diagnosis (1) Vertigo: Code(s): R42 - Dizziness and giddiness Status: Acute (2) Intractable nausea and vomiting: Code(s): R11.2 - Nausea with vomiting, unspecified Status: Acute (3) Generalized abdominal pain: Code(s): R10.84 - Generalized abdominal pain Status: Acute (4) Recent URI: Code(s): J06.9 - Acute upper respiratory infection, unspecified Status: Acute (5) Eustachian tube dysfunction: Code(s): H69.80 - Other specified disorders of Eustachian tube, unspecified ear Status: Acute Plan Vertigo peripheral in nature likely due to eustachian tube dysfunction verses a viral labyrinthitis given recent rhinorrhea and frontal sinus pressure and nasal congestion. Soundly the patient may have had a recent URI causing viral pathology. Patient received a dose of meclizine and Zofran in the ER with no improvement in her symptoms. I evaluated the patient in the ER and performed manipulation of the patient's eustachian tube. This decreased the bulge of the patient's right tympanic membrane but some vertigo persisted. Patient subsequently received a dose of IV Decadron and volume in the ER. I did denies get chance to re-evaluate the patient after these medications. The patient was admitted for IV fluid hydration due to persistent nausea due to vertigo. Medically stain has been scheduled. The patient is having generalized abdominal pain has CT of the abdomen pelvis which demonstrated nonspecific shotty lymphadenopathy. I suspect the patient's abdominal pain is more due to her recent vomiting from her vertigo. Will provide p.r.n. Tylenol for patient's abdominal pain and continue IV fluids. 08/15/2021 interval history: patient continue to have symptoms and aggravated activity and complaint of nausea which is somewhat improved, patient states her visual acuity has also reduce after she had cataract surgery, CT scan of the head is negative for any acute injury further evaluate will do the MRI of the brain consult neurologist for further recommendation, patient abdominal pain is improved and had a CT scan of abdomen did not show any acute pathology, being treated with meclizine, there is also concern the patient symptoms are stemming from eustachian tube dysfunction patient was given a time dose of dexamethasone in ER continue prednisone, will start the patient on clear liquid and advance her diet as tolerated, will continue to monitor the PT OT evaluate the and further recommendation to follow. 08/16/2021 interval history: patient continue to have symptoms and aggravated with activity and complaint of nausea which is somewhat improved, but unable to tolerate p.o. patient states her visual acuity has also reduce after she had cataract surgery, CT scan of the head is negative for any acute injury further evaluate, to further evaluate patient had MRI of the brain which is negative and ruled out posterior cerebral circulation stroke seen by neurologist, , patient abdominal pain is improved and had a CT scan of abdomen did not show any acute pathology, being treated with meclizine, there is also concern the patient symptoms are stemming from eustachian tube dysfunction patient was given one time dose of dexamethasone in ER continued prednisone, will start the patient on clear liquid and advance her diet as tolerated, will continue to monitor the PT OT evaluate the and further recommendation to follow, Patient has been admitted as observation status. DS: Summary Hospital Course Reason for hospitalization: HPI: 65-year-old female with past medical history of hypothyroidism and fibromyalgia who presented to the ER with sudden onset of dizziness and associated nausea and vomiting had around 1300 today.? Patient denies any activities or specific moveme
[2021-08-17 14:18] VITALS: O2SAT 96
[2021-08-17 14:23] VITALS: BP 150/68; PULSE 73; RESP 16; TEMP 36.8; O2SAT 99
== END 2021-08-17 14:30 | disposition home or self-care (01) ==
LOC: ANHED 23:20 → ANH3MED 08-15 01:27
PROVIDERS: Admitting Provider Internal Medicine; Emergency Provider Emergency Medicine; PCP Family Medicine; Visit Provider Family Medicine
DX: R11.2 Nausea with vomiting, unspecified (principal); R51.9 Headache, unspecified; R42 Dizziness and giddiness; E03.9 Hypothyroidism, unspecified; M79.7 Fibromyalgia; R10.84 Generalized abdominal pain; J06.9 Acute upper respiratory infection, unspecified; H69.81 Other specified disorders of Eustachian tube, right ear; Z20.822 Contact with and (suspected) exposure to COVID-19
CPT/HCPCS: 36415; 70450; 70553; 74176; 80053; 80074; 81001; 82948; 83690; 85025; 87426; 87502; 87804; 93306; 96360; 96361; 96372; 96374; 96375; 99213; 99285; A9270; A9577; C9803; G0378; G0379; G0463; J1100; J1650; J2405; J3360; J7030; J7512; U0003; U0005

== ENCOUNTER 2021-12-31 06:36 | Outpatient (CLI) | payer OTHER, SELFPAY ==
--- NOTE | ~2021-12-31 | MR_ITS ---
EXAMINATION: MR cervical spine wo con DATE: 12/31/2021 07:37 INDICATION: Neck pain. TECHNIQUE: Magnetic resonance imaging (MRI) of the cervical spine was performed without intravenous c ontrast. COMPARISON: None FINDINGS: There is kyphosis of cervical spine. Vertebral body heights are normal. There is mildly dec reased disc height at C4-C5 and C5-C6 and severely decreased disc height at C6-C7. The spinal cord si gnal intensity is normal. The following disc levels are specifically discussed: C2-C3: The disc does not extend beyond the endplate margin. There is no uncovertebral joint osteoarth ritis. There is moderate right facet joint osteoarthritis. There is no neural foraminal stenosis. The re is no central canal stenosis. C3-C4: The disc does not extend beyond the endplate margin. There is no uncovertebral joint osteoarth ritis. There is severe right and moderate left facet joint osteoarthritis. There is mild bilateral ne ural foraminal stenosis. There is no central canal stenosis. C4-C5: There is a central protrusion. There is moderate left uncovertebral joint osteoarthritis. Ther e is severe right and moderate left facet joint osteoarthritis. There is mild bilateral neural forami nal stenosis. There is mild central canal stenosis. C5-C6: The disc does not extend beyond the endplate margin. There is severe right and moderate left u ncovertebral joint osteoarthritis. There is severe right and moderate left facet joint osteoarthritis . There is mild right neural foraminal stenosis. There is no central canal stenosis. C6-C7: The disc is bulging. There is severe bilateral uncovertebral joint osteoarthritis. There is mo derate right and severe left facet joint osteoarthritis. There is mild bilateral neural foraminal zhen nosis. There is mild central canal stenosis with ventral indentation of the spinal cord. C7-T1: The disc does not extend beyond the endplate margin. There is no uncovertebral joint osteoarth ritis. There is severe bilateral facet joint osteoarthritis. There is mild right neural foraminal zhen nosis. There is no central canal stenosis. IMPRESSION: 1. Severe cervical spondylosis. Reviewed, dictated and finalized at location A.
== END 2021-12-31 06:37 | disposition home or self-care (01) ==
PROVIDERS: PCP Family Medicine; Visit Provider Family Medicine
DX: M54.2 Cervicalgia (principal); M43.02 Spondylolysis, cervical region
CPT/HCPCS: 72141

== ENCOUNTER 2022-05-08 08:41 | Emergency (ER) | payer OTHER, SELFPAY ==
[2022-05-08 08:48] VITALS: BP 139/74; PULSE 92; RESP 16; TEMP 37; O2SAT 98
--- NOTE | 2022-05-08 09:13 | ED.URI ---
HPI - URI/Sore Throat General Chief Complaint: Upper Respiratory Infection Stated Complaint: Ear/Nose/Throat Time Seen by Provider: 05/08/22 09:13 Source: patient, RN notes reviewed and old records reviewed Mode of arrival: ambulatory Limitations: no limitations History of Present Illness HPI Narrative: 66 year old female who presents to [facility] care with complaints of cough, sneezing, diarrhea, sore throat,for 5 days with reported fever noted on Wednesday only.. Patient reports that she has been exposed to strep from grandchildren and concerned of strep. Patient reports that she has been taking Ibuprofen for her symptoms and also Pepto Bismol for her diarrhea.Patient report one loose stool this morning, reports 6 yesterday, denies any blood in stools reports watery brown stool. MD elicited complaint: cough, sore throat, rhinorrhea, nasal congestion and other (diarrhea) Onset (ago): day(s) (5) Pain scale (0-10): 8 Able to tolerate fluids by mouth: Yes Associated symptoms: fever (wednesday), rhinorrhea, nasal congestion, sore throat, cough and other (diarrhea) Treatments prior to arrival: ibuprofen and other (Pepto Bismol) Related Data Home Medications Medication Instructions Recorded Confirmed gabapentin 300 mg capsule 900 mg PO TID 02/10/21 05/08/22 levothyroxine 100 mcg tablet 100 mcg PO DAILY 08/14/21 05/08/22 Allergies Allergy/AdvReac Type Severity Reaction Status Date / Time No Known Allergies Allergy Verified 05/08/22 09:01 Review of Systems Review of Systems: CONSTITUTIONAL: Reports malaise, chills, sweats, or fever. EYES: Denies visual changes, redness, or discharge. ENT: Reports rhinorrhea, congestion, sinus pain,no otalgia positive for sore throat. CARDIOVASCULAR: Denies chest pain, palpitations, or edema. RESPIRATORY: Reports cough.? Denies dyspnea. GASTROINTESTINAL: Denies abdominal pain, nausea, vomiting, positive for diarrhea SKIN: Denies rash or itching. MUSCULOSKELETAL: reports myalgia. NEUROLOGIC: Denies headache. All systems reviewed & are unremarkable except as noted in HPI and below PMFSH Past Medical History Medical History (Updated 05/09/22 @ 00:01 by Eugene Sanders) Fibromyalgia Hypothyroidism Surgical History Surgical History (Updated 08/15/21 @ 07:41 by Queta Andersen DO) History of hysterectomy Hx of cholecystectomy Family History Family History Mother Hepatitis Liver cirrhosis Social History Social History Smoking status: Never smoker Alcohol intake: never Substance use: never Spiritual care concerns: No Comments At time of signature, agree with nursing past medical, surgical, social and family history. There is no relevant family history pertinent to the presenting complaint Exam Narrative: GENERAL: Well-appearing, well-nourished, and in no acute distress. HEAD: Normocephalic EYES: PERRLA, conjunctivae clear ENT: Nares clear, turbinates edematous and erythematous, clear discharge. Mucous membranes moist. TM pearly cuevas with dull light reflex bilaterally; no tragal tenderness. Oropharynx erythematous without lesions. Tonsils not enlarged and without exudate, no drooling, no hoarseness, no trismus, uvula midline.post nasal drainage NECK: Supple. No lymphadenopathy CHEST: Clear to auscultation, breath sounds equal. No wheezing, rhonchi, rales, or stridor. No respiratory distress, speaks in full sentences.cough SAO2 98% on room air HEART: Regular rate and rhythm. No murmur heard. SKIN: Warm, dry, no rash. NEURO: Alert and oriented x3. PSYCH: Normal mood and affect Course Course Emergency Course: Patient is aware of diagnosis, understands and agrees to treatment plan.? Anticipatory guidance given.? Patient agrees to follow-up as directed and is aware of reasons to seek care at the emergency department. Portions of
== END 2022-05-08 09:32 | disposition home or self-care (01) ==
PROVIDERS: Emergency Provider Registered Nurse
DX: J02.9 Acute pharyngitis, unspecified (principal); R19.7 Diarrhea, unspecified; E03.9 Hypothyroidism, unspecified
CPT/HCPCS: 87081; 87880; 99213; G0463

== ENCOUNTER 2023-03-03 08:47 | Emergency (ER) | payer MEDICARE, MEDICAID, SELFPAY ==
[2023-03-03 08:55] VITALS: BP 130/64; PULSE 70; RESP 16; TEMP 36.6; O2SAT 97
--- NOTE | 2023-03-03 09:08 | ED.GENADULT ---
HPI - General Adult General Chief complaint: Urogenital-Female Stated complaint: Poss UTI Source: patient, RN notes reviewed and old records reviewed Mode of arrival: ambulatory Limitations: no limitations History of Present Illness HPI narrative: 67-year-old female presents to [facility] with complaints burning with urination, urinary frequency, lower abdominal pain that started March 01. Patient states seems to be improving this still having some symptoms. MD complaint: Burning with urination Onset (ago): day(s) (2) Related Data Home Medications Medication Instructions Recorded Confirmed gabapentin 300 mg capsule 900 mg PO TID 02/10/21 03/03/23 levothyroxine 100 mcg tablet 100 mcg PO DAILY 08/14/21 03/03/23 famotidine 20 mg tablet (Pepcid) 20 mg PO DAILY 03/03/23 03/03/23 Allergies Allergy/AdvReac Type Severity Reaction Status Date / Time No Known Allergies Allergy Verified 03/03/23 09:08 Review of Systems Constitutional: Constitutional: Reports no additional constitutional complaints, Denies body ache(s), Denies chills, Denies fatigue, Denies fever(s) and Denies headache(s) Eyes: Eyes: Reports no additional eye complaints and Denies blurry vision ENT: Reports system reviewed and no additional complaints, except as documented, Denies vertigo, Denies dizziness, Denies ear discharge, Denies otalgia, Denies facial pain, Denies headache(s), Denies nasal congestion, Denies nasal discharge, Denies sinus pain, Denies sinus pressure and Denies sore throat Cardiovascular: Cardiovascular: Reports no additional cardiovascular complaints, Denies chest pain, Denies chest pain at rest, Denies rapid heart rate and Denies dyspnea Respiratory: Respiratory: Reports no additional respiratory complaints, Denies chest congestion, Denies cough, Denies pain on inspiration, Denies pain with cough and Denies dyspnea Gastrointestinal: Gastrointestinal: Reports as per HPI, Reports abdominal pain, Denies diarrhea, Denies nausea and Denies vomiting Genitourinary: Genitourinary: Reports as per HPI, Reports nocturia and Reports dysuria Integumentary/Breasts: Skin/Breast: Denies rash Neurologic: Reports system reviewed and no additional complaints, except as documented, Denies vertigo, Denies dizziness and Denies headache(s) Endocrine: Endocrine: Denies fatigue PMFSH Past Medical History Medical History Fibromyalgia Hypothyroidism Surgical History Surgical History History of hysterectomy Hx of cholecystectomy Family History Family History Mother Hepatitis Liver cirrhosis Social History Social History Smoking status: Never smoker Alcohol intake: never Substance use: never Spiritual care concerns: No Comments At the time of my signature, I reviewed and agree with the nursing past medical, surgical, social, and family history. There is no relevant family history pertinent to the patient complaint. Exam Const: General: cooperative, healthy appearing, no acute distress and well nourished Nutritional Appearance: well nourished Orientation/consciousness: patient oriented x3 Limitations: no limitations HENMT: Head: normal to inspection and normocephalic Ears: external ears normal, TM's normal bilaterally, mastoids normal and Abnormal EAC present Face/Nose/Sinus: normal facial exam Face and sinus: normal facial exam Mouth: Yes Normal oral and palatal mucosa present, Yes oropharynx normal and Yes moist mucous membranes Throat: tonsils normal, uvula midline and no uvular edema Eyes: General: appearance normal, both eyes and all related structures Sclera: sclerae normal Pupils: Equal, round and reactive pupils present Resp: Effort & Inspection: normal respiratory effort, able to speak in comp
== END 2023-03-03 09:21 | disposition home or self-care (01) ==
PROVIDERS: Emergency Provider Registered Nurse
DX: N30.90 Cystitis, unspecified without hematuria (principal); B96.4 Proteus (mirabilis) (morganii) as the cause of diseases classified elsewhere; M79.7 Fibromyalgia; E03.9 Hypothyroidism, unspecified
CPT/HCPCS: 81003; 87077; 87086; 87186; 99213; G0463

== ENCOUNTER 2023-08-03 15:58 | Emergency (ER) | payer MEDICARE, MEDICAID, SELFPAY ==
[2023-08-03 16:08] VITALS: BP 151/77; PULSE 85; RESP 20; TEMP 36.8; O2SAT 98
--- NOTE | 2023-08-03 16:53 | ED.BACK ---
HPI - Back Pain/Injury General Chief Complaint: Back Pain/Injury Stated Complaint: back pain Time Seen by Provider: 08/03/23 16:30 Source: patient, RN notes reviewed and old records reviewed Mode of arrival: ambulatory Limitations: no limitations History of Present Illness HPI Narrative: 67 year old female presents to [facility] care with complaints of one week duration of right lower back pain with some radiation to hip at times. Patient reports also some left lower back pain with no radiation. Patient reports that she was raking in yard and then pain started with some spasming also. Patient has history of fibromyalgia dn arthritis. She states that she has been taking Tylenol arthritis for her pain with minimal decrease in pain. Patient has no midline pain or any paravertebral selling or tenderness, pain over SI joint regions. Patient denies any bowel or bladder dysfunction or any saddle paraesthesia. MD elicited complaint: back pain Pertinent past history: prior back pain Onset (ago): week(s) (1) Pain scale (0-10): 10 Location: lumbar spine Radiation: other (right upper hip at intervals) Exacerbating factors: movement and walking Treatments prior to arrival: other (Tylenol arthritis) Related Data Home Medications Medication Instructions Recorded Confirmed gabapentin 300 mg capsule 300 mg PO TID 02/10/21 08/03/23 famotidine 20 mg tablet (Pepcid) 20 mg PO DAILY 03/03/23 08/03/23 hydroxyzine HCl 25 mg tablet See Rx Instructions .Route 08/03/23 08/03/23 .COMPLEX PRN Anxiety levothyroxine 88 mcg tablet 88 mcg PO DAILY 08/03/23 08/03/23 Allergies Allergy/AdvReac Type Severity Reaction Status Date / Time No Known Allergies Allergy Verified 08/03/23 16:41 Review of Systems Review of Systems: CONSTITUTIONAL: Denies fever, chills, or sweats. CARDIOVASCULAR: Denies chest pain, palpitations, or edema. RESPIRATORY: Denies cough or dyspnea. GASTROINTESTINAL: Denies abdominal pain, nausea, vomiting, or diarrhea. GENITOURINARY: Denies dysuria or hematuria. SKIN: Denies rash or itching. MUSCULOSKELETAL: Reports bilateral lower back pain right great than left with some radiation at intervals to right upper or myalgia. NEUROLOGIC: Denies headache, numbness, or weakness. All systems reviewed & are unremarkable except as noted in HPI and below PMFSH Past Medical History Medical History (Updated 08/04/23 @ 19:58 by Corrie Barth NP) Arthritis Fibromyalgia Hypothyroidism Surgical History Surgical History History of hysterectomy Hx of cholecystectomy Family History Family History Mother Hepatitis Liver cirrhosis Social History Social History Smoking status: Never smoker Alcohol intake: never Substance use: never Spiritual care concerns: No Comments At time of signature, agree with nursing past medical, surgical, social and family history. There is no relevant family history pertinent to the presenting complaint Exam Narrative: GENERAL: Well-appearing, well-nourished, and in some acute distress related to pain. HEAD: Normocephalic, atraumatic. EYES: PERRLA and EOMI. NECK: Supple. No lymphadenopathy. CHEST: Clear to auscultation. No respiratory distress. HEART: Regular rate and rhythm. Distal pulses palpable and equal, cap refill <3 seconds ABDOMEN: Soft, nontender, nondistended, normal active bowel sounds, no palpable or pulsatile masses. No CVA tenderness MUSCULOSKELETAL: Normal range of motion and strength in all extremities; 5/5 strength with hip flexion and extension, dorsiflexion and extension, knee flexion and extension, plantar flexion and extension. Normal sensation in dermatomal distributions with sensitivity to light touch and pain. No midline back tenderness to palpation. No paraspinal tenderness. Difficult
== END 2023-08-03 17:05 | disposition home or self-care (01) ==
PROVIDERS: Emergency Provider Registered Nurse
DX: M54.50 Low back pain, unspecified (principal); M19.90 Unspecified osteoarthritis, unspecified site; M79.7 Fibromyalgia; E03.9 Hypothyroidism, unspecified
CPT/HCPCS: 99213; G0463

== ENCOUNTER 2024-01-03 04:33 | Emergency (ER) | payer OTHER, SELFPAY ==
--- NOTE | ~2024-01-03 | XR_ITS ---
Portable chest x-ray Comparison: None Clinical History: Dizziness Findings: Lungs are clear, without focal consolidation or pleural effusion. Cardiomediastinal silho uette is unremarkable. Bones and soft tissues are unremarkable. Impression: Clear lungs. Reviewed, dictated and finalized at location M. Impression: Clear lungs.
--- NOTE | ~2024-01-03 | CT_ITS ---
CT ANGIOGRAM NECK AND HEAD History: Vertigo. Technique: Axial noncontrast imaging of the brain was performed. Serial spiral axial images through t he head and neck were then obtained during arterial phase IV injection of 100 cc of Omnipaque 350. 3- D postprocessing and MIP images were then reconstructed on the remote workstation. Dose reduction jose hnique was used on this scan by utilizing automated exposure control and iterative reconstruction jose hnique. The dose-length product (DLP) was 1616.31 mGy-cm. COMPARISON: 08/14/2021 CTA neck findings: Bilateral vertebral arteries are patent. Bilateral common carotid, internal carot id, and external carotid arteries are patent. No large vessel occlusion or stenosis. No aneurysm. The proximal right internal carotid artery demonstrates 0% stenosis relative to the normal distal artery lumen diameter. The proximal left internal carotid artery demonstrates 0% stenosis relative to the n ormal distal artery lumen diameter. CTA head findings: Distal vertebral arteries, basilar artery, and posterior cerebral arteries are pat ent. Distal internal carotid arteries, middle cerebral arteries, and anterior cerebral arteries are p atent. No large vessel occlusion or stenosis. No aneurysm. Axial noncontrast images of the brain is unremarkable. No acute infarct, mass lesion, or intracranial hemorrhage seen. Gerber differentiation preserved. No mass effect or midline shift. Ventricles and sub arachnoid spaces are unremarkable. Paranasal sinuses and mastoid areas are clear. Calvarium intact. Impression: No significant vascular abnormality. Reviewed, dictated and finalized at [facility]. Impression: No significant vascular abnormality.
[2024-01-03 04:39] VITALS: BP 176/77; PULSE 87; RESP 13; TEMP 36.7; O2SAT 98
[2024-01-03 04:42] VITALS: PULSE 87
--- NOTE | 2024-01-03 04:53 | ED_ITS ---
HPI - Dizziness General Chief Complaint: Dizziness Stated Complaint: blurred vision, world spinning, vomiting Time Seen by Provider: 01/03/24 04:53 Source: patient Mode of arrival: ambulatory Limitations: no limitations History of Present Illness HPI Narrative: Patient presents with acute onset dizziness, blurred vision, and vomiting at approximately 3:00 a.m.. She initially woke up and looked at the clock and felt like her eyes were moving in all directions. Even when she closed her eyes she could feel them moving which he touched her eyelids. When she went to get up the other symptoms started. She describes it like the world is spinning. Symptoms have remained constant since. Patient went to bed (thus last known well 20:30). no confusion/ altered mental status or unilateral symptoms. no medication changes recently. She does not know if her gait was affected. She has a headache. Denies diplopia or dysarthria. No ear pain though she does have chronic tinnitus, no acute changes from this. She states this has happened once previously and she came to the emergency department for it. patient has a primary care physician. She is supposed to take get an MRI done. She had been given a referral to a neurologist but that neurologist not accept her insurance. Related Data Home Medications Medication Instructions Recorded Confirmed gabapentin 300 mg capsule 300 mg PO TID 02/10/21 08/03/23 famotidine 20 mg tablet (Pepcid) 20 mg PO DAILY 03/03/23 08/03/23 hydroxyzine HCl 25 mg tablet See Rx Instructions .Route 08/03/23 08/03/23 .COMPLEX PRN Anxiety levothyroxine 88 mcg tablet 88 mcg PO DAILY 08/03/23 08/03/23 Allergies Allergy/AdvReac Type Severity Reaction Status Date / Time No Known Allergies Allergy Verified 01/03/24 04:39 [facility] Past Medical History Medical History (Updated 01/03/24 @ 07:38 by Dorothy Garcia MD) Arthritis Edentulous Fibromyalgia Hypothyroidism Surgical History Surgical History History of hysterectomy Hx of cholecystectomy Family History Family History Mother Hepatitis Liver cirrhosis Social History Social History Smoking status: Never smoker Alcohol intake: never Substance use: never Occupation/Education: retired Spiritual care concerns: No Exam Narrative: GENERAL: Well-appearing, well-nourished, and in no acute distress. HEAD: Normocephalic, atraumatic. EYES: Non injected, non icteric ENT: Nares clear, no rhinorrhea or epistaxis. Scant bilateral effusions posterior to the tympanic membranes and mild erythema anterior to tympanic membranes but without bulging. Edentulous. NECK: Supple. CHEST: Speaking in full sentences. No respiratory distress. HEART: Regular rate and rhythm. . ABDOMEN: Soft, nondistended. EXTREMITIES: Normal range of motion. No lower extremity edema. Moves extremities x4 SKIN: Warm, dry, no rash. NEURO: No focal deficits. Alert and oriented x3. Patient performs [id number] and [id number] bilaterally without ataxia. Patient has le ft beating horizontal nystagmus. no nystagmus to the right and no vertical nystagmus. Symmetry with facial muscle engagement. No loss of the bilateral nasolabial fold. Sensation intact to gross touch and symmetric in bilateral upper and lower extremities. PSYCH: Normal mood and affect. Course Vital Signs Vital signs: Vital Signs Temperature 98.1 F 01/03/24 04:39 Pulse Rate 87 01/03/24 04:39 Respiratory Rate 13 01/03/24 04:39 Blood Pressure 176/77 H 01/03/24 04:39 Pulse Oximetry 98 01/03/24 04:39 Oxygen Delivery Room Air 01/03/24 04:39 Temperature 98.1 F 01/03/24 04:39 Pulse Rate 62 01/03/24 07:34 Respiratory Rate 14 01/03/24 07:34 Blood Pressure 136/74 01/03/24 07:34 Pulse Oximetry 99 01/03/24 07:34 Oxygen Delivery Room Air 01/03/24 04:39 MDM - Dizziness MDM Narrative Medical decision making narrative: Patient presents with report acute onset dizziness blurred vision occurring at 3:00 a.m.. Just prior to that she woke and when she looked she felt like eyes moving underneath when she touched them. She states this has happened before. In the emergency department she is afebrile with vital signs notable for hypertension. Patient has a reassuring for left beating nystagmus. cerebellar testing is normal. Initially trialed meclizine. Work up generally unremarkable. UDS with cannabinoid. Patient is reassessed at approximately 6:35 a.m.. She states her dizziness and nausea are slightly better although still present. She states her eye symptoms have resolved. Patient observed ambulating to the bathroom twice and does so with a steady gait. She is reassessed approximately 7:15 a.m. and states she is feeling much better and her symptoms have resolved. Patient discharged in stable condition with prescription for meclizine (although unclear if BPPV is exact etiology...it is possible patient turned her head to look at the clock which prompted symptoms). She is also provided referral for Neurology. Differential Diagnosis Differential diagnosis: Likely benign paroxysmal positional vertigo, orthostatic hypotension, vertebral basilar insufficiency, cerebrovascular accident, acute vestibular neuronitis and transient cerebral ischemia Medical Records Attestation: I reviewed the patient's medical records. Medical records narrative: Prior ECHO 2021: Summary 1. Complete two-dimensional, color flow and Doppler transthoracic echocardiogram is performed. 2. Left ventricular chamber dimension is normal. 3. Left ventricular systolic function is normal, estimated at 55-60%. 4. The left ventricular diastolic function is grade I diastolic dysfunction. 5. E/e' 11 is mildly elevated. 6. There is mild aortic valve regurgitation. 7. There is mild to moderate mitral valve regurgitation. 8. There is trace tricuspid valve regurgitation. 9. No pulmonary hypertension, estimated pulmonary arterial systolic pressure is 21 mmHg. Lab Data Attestation: I reviewed the patient's lab results. Lab results narrative: transaminitis, intermittently seen previously 01/03/24 05:09 01/03/24 05:09 Labs: Lab Results 01/03/24 01/03/24 Range/Units 05:09 05:58 WBC 6.7 (4.5-10.0) K/mm3 RBC 3.92 L (4.2-5.4) M/mm3 Hgb 13.3 (12.0-15.0) g/dL Hct 39.8 (37.0-47.0) % MCV 101.5 H (80-100) fl MCH 33.9 (26-34) pg MCHC 33.4 (32-36) g/dl RDW 14.7 H (11.5-14.5) % Plt Count 172 (150-375) k/mm3 MPV 10.8 H (7.4-10.4) fl Immature Gran % (Auto) 0.3 (0-0.5) % Neut % (Auto) 63.0 (45.5-73.1) % Lymph % (Auto) 26.3 (18.3-44.2) % Rowan % (Auto) 7.8 (2.6-8.5) % Eos % (Auto) 2.2 (0-4.4) % Baso % (Auto) 0.4 (0.2-1.2) % Lymph # (Auto) 1.76 (0.9-3.2) K/mm3 Rowan # (Auto) 0.5 (0.1-0.6) K/mm3 Eos # (Auto) 0.2 (0-0.3) K/mm3 Baso # (Auto) 0.0 (0.0-0.1) K/mm3 Abs Immat Gran (auto) 0.02 (0.00-0.031) K/mm3 Absolute Neuts (auto) 4.2 (1.3-6.7) K/mm3 Absolute Nucleated RBC 0.000 (0.0-0.012) K/mm3 Nucleated RBC % 0.0 (0.0-0.2) % PT 13.5 (11.1-14.7) Seconds INR 1.0 APTT 26.6 (22.3-36.8) Seconds Sodium 141 (137-145) mmol/L Potassium 3.6 (3.4-5.0) mmol/L Chloride 105 (98-107) mmol/L Carbon Dioxide 27 (22-30) mmol/L Anion Gap 9 (4-12) mmol/L BUN 14 (7-17) mg/dL Creatinine 0.60 L (0.7-1.0) mg/dL Estim Creat Clear Calc 71 ml/min Estimated GFR > 60 (59 - ) Glucose 116 H (65-110) mg/dL Calcium 8.8 (8.4-10.2) mg/dL Total Bilirubin 0.6 (0.2-1.3) mg/dL AST 58 H (14-36) U/L ALT 49 H (6-35) U/L Alkaline Phosphatase 177 H (38-126) U/L Troponin I < 0.012 (0.000-0.034) ng/mL Total Protein 9.0 H (6.3-8.2) g/dL Albumin 4.4 (3.5-5.1) g/dL Urine Color Yellow (Yellow) Urine Appearance Clear (Clear) Urine pH 7.0 (5.0-9.0) Ur Specific [place] > 1.045 H (1.001-1.035) Urine Protein Trace (Negative) mg/dL Urine Glucose (UA) Negative (Negative) mg/dL Urine Ketones Negative (Negative) mg/dL Ur Blood (Man) Negative (Negative) Urine Nitrate Negative (Negative) Urine Bilirubin Negative (Negative) Urine Urobilinogen 0.2 (<2.0) mg/dL Leukocyte Esterase Rfl Negative (Negative) CRISTA/UL Urine RBC 0-2 (0-2) /hpf Urine WBC 0-5 (0-3) /hpf Ur Squamous Epith Cells None seen (Few) /hpf Urine Bacteria None seen /hpf Urine Casts 0-2 Urine Opiates Screen Negative (Negative) Urine Methadone Screen Negative (Negative) Ur Barbiturates Screen Negative (Negative) Ur Phencyclidine Scrn Negative (Negative) Ur Amphetamine Screen Negative (Negative) U Benzodiazepines Scrn Negative (Negative) Urine Cocaine Screen Negative (Negative) U Cannabinoids Screen Positive A (Negative) Imaging Data Radiologist's impression: Impressions Head/Neck CTA 01/03/24 06:35 Impression: No significant vascular abnormality. Clear lungs. ECG Data EKG #1: Attestation: I personally reviewed and interpreted this ECG as follows: ECG completion date: 01/03/24 ECG completion time: 05:08 Prior ECG tracings: not available for review (no prior for comparison) Interpretation: normal sinus rhythm at a rate of 80 beats per minute. UT interval 185. QRS 103. QT/QTC 402/438. Incomplete RBBB given QRS less [id number]; RSR' M-shaped pattern in V1-V2; wide, slurred S wave in lateral leads (I, aVL and to a lesser extent V5-6) T-wave flattening in lead 3 but otherwise upright in normal in contiguous inferior leads 2 and AVF. T wave inversion in V2 might be physiologic or due to improper lead placement. No other T-wave inversions. Discharge Plan Discharge Clinical Impression: Vertigo, Transaminitis, Marijuana use Patient Disposition: Home, Self-Care Condition: Stable Instructions: Antibiotic Form, Vertigo (ED) Additional Instructions: You can trial the medication prescribed for your symptoms. follow-up with primary care physician or, the name of a neurologist is listed below if perhaps they take your insurance. return to the emergency department with any new or wo rsening symptoms. Prescriptions: New meclizine 25 mg tablet,chewable 25 mg PO DAILY PRN (Reason: dizziness) Qty: 20 0RF No Action gabapentin 300 mg Capsule 300 mg PO TID famotidine [Pepcid] 20 mg Tablet 20 mg PO DAILY levothyroxine 88 mcg tablet 88 mcg PO DAILY hydroxyzine HCl 25 mg tablet See Rx Instructions .ROUTE .COMPLEX PRN (Reason: Anxiety) Rx Instructions: as needed prednisone 20 mg tablet 20 mg PO BID Qty: 10 0RF cyclobenzaprine 10 mg tablet 10 mg PO TID PRN (Reason: muscle spasm) Qty: 30 0RF lidocaine 5 % adhesive patch,medicated 1 patch topical DAILY Qty: 15 0RF Rx Instructions: leave on most painful area for up to 12 hrs Follow-up/Referrals: Lucretia Mo MD [Physician] - ( neurology) PHYSICIAN NOT ON STAFF,NONSTAFF [Primary Care Provider] - Time of Disposition: 07:21
--- NOTE | 2024-01-03 04:54 | ECG_ITS ---
Test Date: 2024-01-03 05:08:24 Measurements Intervals Caret Rate: 80 P: 35 MA: 185 QRS: -8 QRSD: 103 T: 28 QT: 402 QTc: 465 Interpretive Statements SINUS RHYTHM INCOMPLETE RIGHT BUNDLE BRANCH BLOCK [90+ ms QRS DURATION, TERMINAL R IN V1/V2, 40+ ms S IN I/aVL/V4/V5/V6] No previous ECG available for comparison Electronically Signed On 01-03-2024 11:00:17 CDT by Edward Reddy M.D.
--- NOTE | 2024-01-03 05:11 | PC.NURSE ---
Pt unable to urinate at this time and politely declined straight catheterization. Pt educated by this RN on importance of providing sample. Call light within reach for pt to use when able to use restroom.
[2024-01-03] MEDS: MECLIZINE HCL 25 MG TABLET PO (05:14)
[2024-01-03 05:15] LABS: Basophils Percent Auto 0.4 % (0.2-1.2); Eosinophils Absolute Auto 0.2 K/mm3 (0-0.3); Eosinophils Percent Auto 2.2 % (0-4.4); Hematocrit 39.8 % (37.0-47.0); Hemoglobin 13.3 g/dL (12.0-15.0); Immature Granulocyte Absolute 0.02 K/mm3 (0.00-0.031); Immature Granulocyte Percent A 0.3 % (0-0.5); Lymphocytes Absolute Auto 1.76 K/mm3 (0.9-3.2); Lymphocytes Percent Auto 26.3 % (18.3-44.2); Mean Corpuscular HGB Conc 33.4 g/dl (32-36); Mean Corpuscular Hemoglobin 33.9 pg (26-34); Mean Corpuscular Volume 101.5 fl (80-100); Mean Platelet Volume 10.8 fl (7.4-10.4); Monocytes Absolute Auto 0.5 K/mm3 (0.1-0.6); Monocytes Percent Auto 7.8 % (2.6-8.5); Neutrophils Absolute Auto 4.2 K/mm3 (1.3-6.7); Platelet Count Result 172 k/mm3 (150-375); Red Blood Count 3.92 M/mm3 (4.2-5.4); Red Cell Distribution Width 14.7 % (11.5-14.5); White Blood Count 6.7 K/mm3 (4.5-10.0)
[2024-01-03 05:28] LABS: Alanine Aminotransferase 49 U/L (6-35); Albumin Level 4.4 g/dL (3.5-5.1); Alkaline Phosphatase 177 U/L (38-126); Anion Gap 9 mmol/L (4-12); Aspartate Amino Transferase 58 U/L (14-36); Bilirubin,Total 0.6 mg/dL (0.2-1.3); Blood Urea Nitrogen 14 mg/dL (7-17); Calcium 8.8 mg/dL (8.4-10.2); Carbon Dioxide 27 mmol/L (22-30); Chloride 105 mmol/L (98-107); Estimated CRCL calculation 71 ml/min; Estimated Glomerular Filt Rate > 60; Glucose 116 mg/dL (65-110); Potassium 3.6 mmol/L (3.4-5.0); Sodium 141 mmol/L (137-145)
[2024-01-03 05:29] LABS: Prothrombin Time 13.5 Seconds (11.1-14.7)
[2024-01-03 05:30] LABS: Partial Thromboplastin Time 26.6 Seconds (22.3-36.8)
[2024-01-03 05:41] LABS: Troponin I < 0.012 ng/mL (0.000-0.034)
[2024-01-03 06:07] VITALS: BP 144/67; PULSE 84; RESP 14; O2SAT 98
[2024-01-03 06:11] LABS: Add Urine Microscopic? YES; Appearance Urine Clear (Clear); Bacteria Urine None Seen /hpf; Bilirubin Urine Negative (Negative); Blood Urine Negative (Negative); Color Urine Yellow (Yellow); Glucose Urine UA Negative (Negative); Ketones Urine Negative (Negative); Leukocyte Esterase Ur Negative LEU/UL (Negative); Nitrate Urine Negative (Negative); Non Pathogenic Casts 0-2; Protein Urine Trace mg/dL (Negative); RBC Urine 0-2 /hpf (0-2); Specific Grav Ur > 1.045 (1.001-1.035); Squamous Epithelial Cell Urine None Seen /hpf (Few); Urobilinogen Urine 0.2 mg/dL (<2.0); WBC Urine 0-5 /hpf (0-3)
[2024-01-03 06:27] LABS: Amphetamine Screen Urine Negative (Negative); Barbiturate Screen Urine Negative (Negative); Benzodiazepines Screen Urine Negative (Negative); Cannabinoid Screen Urine Positive (Negative); Cocaine Screen Urine Negative (Negative); Methadone Screen Urine Negative (Negative); Opiate Screen Urine Negative (Negative); Phencyclidine Screen Urine Negative (Negative)
[2024-01-03] MEDS: diazePAM INJ (*CRX) 10 MG/2 ML SYRINGE 3 MG IV PUSH (06:44)
[2024-01-03 07:34] VITALS: BP 136/74; PULSE 62; RESP 14; O2SAT 99
== END 2024-01-03 07:35 | disposition home or self-care (01) ==
PROVIDERS: Emergency Provider Student in an Organized Health Care Education/Training Program
DX: R42 Dizziness and giddiness (principal); R74.01 Elevation of levels of liver transaminase levels; F12.90 Cannabis use, unspecified, uncomplicated; I45.10 Unspecified right bundle-branch block; M19.90 Unspecified osteoarthritis, unspecified site; M79.7 Fibromyalgia; E03.9 Hypothyroidism, unspecified
CPT/HCPCS: 36415; 70496; 70498; 71045; 80053; 80307; 81001; 84484; 85025; 85610; 85730; 93005; 96374; 99284; A9270; J3360; Q9967

== ENCOUNTER 2024-01-08 17:51 | Emergency (ER) | payer OTHER, SELFPAY ==
[2024-01-08] VITALS (8 sets, daily range): BP systolic 131–158; BP diastolic 67–88; PULSE 81–89; RESP 14–17; TEMP 36.4; O2SAT 95–97
--- NOTE | ~2024-01-08 | XR_ITS ---
XR abdomen/kub 1V DATE: 01/08/2024 20:09 INDICATION: Constipation for 4 days TECHNIQUE: 2 supine AP views COMPARISON: None FINDINGS: No bowel obstruction is evident. Moderate rectal and stool burden. The psoas shadows are intact. No visceromegaly is detected. Multiple bilateral calcified pelvic phleboliths. Status post cholecystectomy. Included skeletal structures are unremarkable. IMPRESSION: Moderate stool burden; no evidence of bowel obstruction Status post cholecystectomy Reviewed, dictated and finalized at [facility] Reviewed, dictated and finalized at [facility].
--- NOTE | 2024-01-08 19:29 | PC.NURSE ---
this rn assumed care of patient. this rn took patient report from Mirian Obrien.
--- NOTE | 2024-01-08 19:59 | PC.NURSE ---
This RN witnessed Sienna ARELLANO perform rectal exam at 1954. MD unable to release feces. See new orders for enema.
--- NOTE | 2024-01-08 20:04 | ED.GENADULT ---
HPI - General Adult General Chief complaint: Abdominal Pain Stated complaint: constipated Time Seen by Provider: 01/08/24 19:12 History of Present Illness HPI narrative: patient is a 68-year-old female who presents emergency department with chief complaint of constipation. The patient reports that she has been unable to have a bowel movement for the last several days reports that she feels though she needs to go as irritation rectal area patient denies blood reports that she has attempted take suppositories without relief. Related Data Home Medications Medication Instructions Recorded Confirmed gabapentin 300 mg capsule 300 mg PO TID 02/10/21 08/03/23 famotidine 20 mg tablet (Pepcid) 20 mg PO DAILY 03/03/23 08/03/23 hydroxyzine HCl 25 mg tablet See Rx Instructions .Route 08/03/23 08/03/23 .COMPLEX PRN Anxiety levothyroxine 88 mcg tablet 88 mcg PO DAILY 08/03/23 08/03/23 Allergies Allergy/AdvReac Type Severity Reaction Status Date / Time No Known Allergies Allergy Verified 01/08/24 17:53 Review of Systems Review of Systems: A 10 system review of systems was completed on the patient and is negative except for what is stated in the HPI. Nursing and ancillary documentation was reviewed. [facility] Past Medical History Medical History (Updated 01/08/24 @ 22:07 by Joshua El MD) Arthritis Edentulous Fibromyalgia Hypothyroidism Surgical History Surgical History History of hysterectomy Hx of cholecystectomy Family History Family History Mother Hepatitis Liver cirrhosis Social History Social History Smoking status: Never smoker Alcohol intake: never Substance use: never Occupation/Education: retired Spiritual care concerns: No Exam Narrative: GENERAL: Well-appearing, well-nourished, and in no acute distress. HEAD: Normocephalic, atraumatic. EYES: PERRLA and EOMI. ENT: Nares clear, no rhinorrhea or epistaxis. Mucous membranes moist. NECK: Supple. CHEST: Clear to auscultation. No respiratory distress. HEART: Regular rate and rhythm. No murmur heard. Normal peripheral pulses. ABDOMEN: Soft, nontender, nondistended, normal active bowel sounds. : Brown stool present soft EXTREMITIES: Normal range of motion. No edema. SKIN: Warm, dry, no rash. NEURO: No focal deficits. Alert and oriented x3. PSYCH: Normal mood and affect. Course Vital Signs Vital signs: Vital Signs Temperature 36.4 C 01/08/24 17:59 Pulse Rate 89 01/08/24 17:59 Respiratory Rate 17 01/08/24 17:59 Blood Pressure 158/88 H 01/08/24 17:59 Pulse Oximetry 97 01/08/24 17:59 Temperature 36.4 C 01/08/24 17:59 Pulse Rate 88 01/08/24 19:31 Respiratory Rate 16 01/08/24 21:53 Blood Pressure 131/67 01/08/24 21:53 Pulse Oximetry 95 01/08/24 21:53 Medical Decision Making MDM Narrative Medical decision making narrative: Diagnosis includes constipation, fecal impaction Plain film x-rays of the abdomen showed a large stool burden and constipation The patient received enema and had a large stool that is feeling much better Urinalysis showed evidence of UTI Patient will be started on Keflex and will be started on a stool softener Vital Signs Vital Signs: Vital Signs Temperature 36.4 C 01/08/24 17:59 Pulse Rate 89 01/08/24 17:59 Respiratory Rate 17 01/08/24 17:59 Blood Pressure 158/88 H 01/08/24 17:59 Pulse Oximetry 97 01/08/24 17:59 Temperature 36.4 C 01/08/24 17:59 Pulse Rate 88 01/08/24 19:31 Respiratory Rate 16 01/08/24 21:53 Blood Pressure 131/67 01/08/24 21:53 Pulse Oximetry 95 01/08/24 21:53 Lab Data Labs: Lab Results 01/08/24 Range/Units 20:11 Urine Color Dark yellow (Yellow) Urine Appearance Cloudy H (Clear) Urine pH 5.5 (5.0-9.0) Ur Specific [place] 1.040 H (1.001-1.035) Urine Protein Trace (Negative) mg/dL Urine Glucose (UA) Negative (Negative) mg/dL Urine Ketones Trace H (Negative) mg/dL Ur Blood (Man) Negative (Negative) Urine Nitrate Negative (Negative) Urine Bilirubin Negative (Negative) Urine Urobilinogen 1.0 (<2.0) mg/dL Add Ur Microanalysis Reviewed Leukocyte Esterase Rfl 1+ H (Negative) CRISTA/UL Urine RBC 3-5 H (0-2) /hpf Urine WBC 11-20 H (0-3) /hpf Ur Squamous Epith Cells Few (Few) /hpf Urine Bacteria None seen /hpf Urine Casts 0-2 Urine Mucus Present /lpf Discharge Plan Discharge Clinical Impression: Constipation, Acute UTI Patient Disposition: Home, Self-Care Condition: Stable Instructions: Antibiotic Form, Constipation (ED), Abdominal Pain (ED) Prescriptions: New docusate sodium [Colace] 100 mg capsule 100 mg PO BID Qty: 60 0RF cephalexin 500 mg capsule 500 mg PO Q12H 7 Days Qty: 14 0RF No Action gabapentin 300 mg Capsule 300 mg PO TID famotidine [Pepcid] 20 mg Tablet 20 mg PO DAILY levothyroxine 88 mcg tablet 88 mcg PO DAILY hydroxyzine HCl 25 mg tablet See Rx Instructions .ROUTE .COMPLEX PRN (Reason: Anxiety) Rx Instructions: as needed prednisone 20 mg tablet 20 mg PO BID Qty: 10 0RF cyclobenzaprine 10 mg tablet 10 mg PO TID PRN (Reason: muscle spasm) Qty: 30 0RF lidocaine 5 % adhesive patch,medicated 1 patch topical DAILY Qty: 15 0RF Rx Instructions: leave on most painful area for up to 12 hrs meclizine 25 mg tablet,chewable 25 mg PO DAILY PRN (Reason: dizziness) Qty: 20 0RF Follow-up/Referrals: Roberto Chawla MD [Physician] - UNKNOWN,DOCTOR [Primary Care Provider] - Time of Disposition: 22:08
[2024-01-08 20:29] LABS: Add Urine Microscopic? YES; Appearance Urine Cloudy (Clear); Bacteria Urine None Seen /hpf; Bilirubin Urine Negative (Negative); Blood Urine Negative (Negative); Color Urine Dark Yellow (Yellow); Glucose Urine UA Negative (Negative); Ketones Urine Trace mg/dL (Negative); Leukocyte Esterase Ur 1+ LEU/UL (Negative); Mucus Urine Present /lpf; Need Manual Microscopic Reviewed; Nitrate Urine Negative (Negative); Non Pathogenic Casts 0-2; Protein Urine Trace mg/dL (Negative); Squamous Epithelial Cell Urine Few /hpf (Few); pH Urine 5.5 (5.0-9.0)
--- NOTE | 2024-01-08 21:56 | PC.NURSE ---
patient able to have extremely large bowel movement in bedside commode. pt states she is feeling much better . pt denies abdominal pain at this time along with nausea.
== END 2024-01-08 22:16 | disposition home or self-care (01) ==
PROVIDERS: Emergency Provider Emergency Medicine
DX: K59.00 Constipation, unspecified (principal); N39.0 Urinary tract infection, site not specified; E03.9 Hypothyroidism, unspecified; M19.90 Unspecified osteoarthritis, unspecified site; M79.7 Fibromyalgia; Z90.710 Acquired absence of both cervix and uterus; Z90.49 Acquired absence of other specified parts of digestive tract; Z79.899 Other long term (current) drug therapy
CPT/HCPCS: 74018; 81001; 87086; 99283

== ENCOUNTER 2024-09-14 08:47 | Emergency (ER) | payer MEDICARE, SELFPAY ==
--- OUTSIDE RECORDS SUMMARY | 2024-09-14 08:51 | XMS_ITS | Data Portability ---
Author Organization [place] [facility] Address [address] [place] [address] Assessment Encounter Date Assessment Date Assessment LastModified by Organization Details LastModified Time 12/02/2023 12/02/2023 130/70 home typical month [email or web address] Not available 12/02/2023 12:18:41 Plan of Treatment Reminders Order Date Submit Date Provider Last Modified By Organization Details Last Modified Time Details Appointments None record ed. Lab TSH, ultra- sensit loretta, serum 2024 025 [facility], [address] [facility], [facility] [address], [place], [address], 5 12:37:12 microa lbumin /creat inine, mass ratio, urine 2024 025 [facility], [address] [facility], [facility], [place], [address], 5 12:37:08 HbA1c (hemog lobin A1c), blood 2024 025 [facility], [address] [facility], [facility], [place], [address], 5 12:37:07 CMP, serum or plasma 2024 025 [facility], [address] [facility], [address], [place], [address], 5 12:37:10 lipid panel, serum 2024 025 [facility], [address] [place] [address] 2, [place], [address], 5 12:37:09 HbA1c (hemog lobin A1c), blood 2023 024 [email or web address] [facility], [address] [place] [address] 2, [place], [address], 4 11:26:02 TSH, ultra- sensit loretta, serum 2023 024 [facility], [address] [place] [address] 2, [place], [address], 4 05:37:41 CMP, serum or plasma 2023 024 [facility], [address] [place] [address] 2, [place], [address], 4 12:38:19 TSH, ultra- sensit loretta, serum 2023 024 [facility], [address] [place] [address] 2, [place], [address], 4 12:38:20 lipid panel, serum 2023 024 [facility], [address] [place] [address] 2, [place], [address], 4 12:38:19 Referral neurol ogist referr gumaro corraltig o 2023 024 LAYNE Alexandra MD, [address] [facility], [address], [place], [address], 4 12:10:28 otolar yngolo gist referr gumaro archibald interm ittent shaynatig o 2023 024 LAYNE Kilpatrick MD, [address], [place], [address], 4 13:03:57 neurol ogist referr al [address] [facility], 3 [facility], [address], [place], [address], 4 11:30:59 Procedures None record ed. Surgeries None record ed. Imaging MRI, brain, w/o contra st 2024 025 [facility] (Cardiology & Emg), [address] [facility], [place], [address], 5 12:05:07 MAMMO, screen ing, bilate ral [address] (Cardiology & Emg), [address] [facility], [place], [address], 5 11:06:01 MRI, brain + brain stem, w/o contra st - chroni c vertig o [address] [facility] (Cardiology & Emg), [address] [place] [address], [address], 5 15:06:22 MAMMO, screen ing, bilate ral 2023 024 [facility], [address] [place], [address], 5 11:19:29 MAMMO, screen ing, bilate ral [address] (Mammography) , [address], [place], [address], 4 12:18:42 Medication Orders cyclob enzapr ine 10 mg tablet 2024 025 [facility]30314, [address], [place], [place], [id number], 5 13:10:54 hydroc hlorot hiazid e 25 mg tablet 2024 025 [facility] #46541, [address], [place], [place], [id number], 5 13:10:54 amitri ptylin e 10 mg tablet 2023 025 [facility]24751, [address], [place], [place], [id number], 5 12:18:34 ondans etron HCl 4 mg tablet 2023 025 [facility] #69177, [address], [place], [place], [id number], 5 12:18:37 hydrox yzine HCl 25 mg tablet 2023 024 [facility], [address], [place], [place], [id number], 5 12:18:05 famoti dine 20 mg tablet 2022 023 [facility], [address], [place], [place], [id number], 3 15:59:43 Patient TargetsNo targets recorded. Patient Instructions Encounter Date Encounter Id Patient Instructions Last Modified By Organization Details Last Modified Time 12/10/2022 [id number] FU 6 mo and after neuro eval. [email or web address] Not available 12/10/2022 16:05:32 06/16/2023 [id number] A healthy lifestyle: care instructions [email or web address] Not available 06/16/2023 10:27:48 FU one year and prn [email or web address] Not available 06/16/2023 10:27:33 12/02/2023 [id number] A healthy lifestyle: care instructions [email or web address] Not available 12/02/2023 14:58:22 12/16/2023 [id number] FU after MRI [email or web address] Not available 12/16/2023 11:27:48 07/26/2024 [id number] A healthy lifestyle: care instructions [email or web address] Not available 07/26/2024 13:13:03 FU 2 weeks with home BP measures [email or web address] Not available 07/26/2024 13:13:02 Reason for Referral Neurologist Referral for Shayna tigo Vertigo Referring Physician: Mirna Hurtado [facility], Encounter Date: 12/10/2022 Domain Architect Referral fo r Vertigo chronic intermittent vertigo Referring Physician: Mirna Hurtado [facility], Encounter Date: 06/16/2023 Neurologist Referral for Shayna tigo chronic vertigo Referring Physician: Mirna Hurtado [facility], Encounter Date: 12/02/2023 Results Created Date Observation Date Name Description Value Unit Range Abnormal Flag Note LastModifiedBy Organization Detail LastModifiedTime 06/16/1906/17/2023 LIPID PANEL cholesterol, total 224 mg/dL 100-19 9 above high normal Not Available [facility] ([facility]) [address] [place], [address], 06/17/2023 12:38:19 06/16/19 24 06/17/2023 LIPID PANEL triglyceride s 295 mg/dL 0-149 above high normal Not Available [facility] ([facility]) [address] [place], [address], 06/17/2023 12:38:19 06/16/19 24 06/17/2023 LIPID PANEL HDL cholesterol 41 mg/dL >39 Not Available [facility] ([facility]) [address] [facility] [place], [address], 06/17/2023 12:38:19 06/16/19 24 06/17/2023 LIPID PANEL VLDL cholesterol mitul 53 mg/dL 5-40 above high normal Not Available [facility] ([facility]) [address] [facility] [place], [address], 06/17/2023 12:38:19 06/16/19 24 06/17/2023 LIPID PANEL LDL chol calc ([facility]) 130 mg/dL 0-99 above high normal Not Available [facility] ([facility]) [address] [facility] [place], [address], 06/17/2023 12:38:19 06/16/19 24 06/17/2023 COMP. METAB OLIC PANEL (14) glucose 84 mg/dL 70-99 Not Available [facility] ([facility]) [address] [place], [address], 06/17/2023 12:38:19 06/16/19 24 06/17/2023 COMP. METAB OLIC PANEL (14) BUN 18 mg/dL 8-27 Not Available [facility] ([facility]) [address] [facility] [place], [address], 06/17/2023 12:38:19 06/16/19 24 06/17/2023 COMP. METAB OLIC PANEL (14) creatinine 0.63 mg/dL 0.57-1 .00 Not Available [facility] ([facility]) [address] [facility] [place], [address], 06/17/2023 12:38:19 06/16/19 24 06/17/2023 COMP. METAB OLIC PANEL (14) eGFR 98 mL/mi n/1.7 3 >59 Not Available [facility] ([facility]) [address] [place], [address], 06/17/2023 12:38:19 06/16/19 24 06/17/2023 COMP. METAB OLIC PANEL (14) BUN/creatini ne ratio 29 12-28 above high normal Not Available [facility] ([facility]) [address] [facility] [place], [address], 06/17/2023 12:38:19 06/16/19 24 06/17/2023 COMP. METAB OLIC PANEL (14) sodium 143 mmol/ L 134-14 4 Not Available [facility] ([facility]) [address] [facility] [place], [address], 06/17/2023 12:38:19 06/16/19 24 06/17/2023 COMP. METAB OLIC PANEL (14) potassium 4.0 mmol/ L 3.5-5. 2 Not Available [facility] ([facility]) [address] [facility] [place], [address], 06/17/2023 12:38:19 06/16/19 24 06/17/2023 COMP. METAB OLIC PANEL (14) chloride 105 mmol/ L 96-106 Not Available [facility] ([facility]) [address] [place], [address], 06/17/2023 12:38:19 06/16/19 24 06/17/2023 COMP. METAB OLIC PANEL (14) carbon dioxide, total 23 mmol/ L 20-29 Not Available [facility] ([facility]) [address] [place], [address], 06/17/2023 12:38:19 06/16/19 24 06/17/2023 COMP. METAB OLIC PANEL (14) calcium 9.0 mg/dL 8.7-10 .3 Not Available [facility] ([facility]) [address] [place], [address], 06/17/2023 12:38:19 06/16/19 24 06/17/2023 COMP. METAB OLIC PANEL (14) protein, total 7.4 g/dL 6.0-8. 5 Not Available [facility] ([facility]) [address] [facility] [place], [address], 06/17/2023 12:38:19 06/16/19 24 06/17/2023 COMP. METAB OLIC PANEL (14) albumin 4.2 g/dL 3.9-4. 9 Not Available [facility] ([facility]) [address] [facility] [place], [address], 06/17/2023 12:38:19 06/16/19 24 06/17/2023 COMP. METAB OLIC PANEL (14) globulin, total 3.2 g/dL 1.5-4. 5 Not Available [facility] ([facility]) [address] [facility] [place], [address], 06/17/2023 12:38:19 06/16/19 24 06/17/2023 COMP. METAB OLIC PANEL (14) A/G ratio 1.3 1.2-2. 2 Not Available [facility] ([facility]) [address] [facility] [place], [address], 06/17/2023 12:38:19 06/16/19 24 06/17/2023 COMP. METAB OLIC PANEL (14) bilirubin, total 0.3 mg/dL 0.0-1. 2 Not Available [facility] ([facility]) [address] [facility] [place], [address], 06/17/2023 12:38:19 06/16/19 24 06/17/2023 COMP. METAB OLIC PANEL (14) alkaline phosphatase 149 IU/L 44-121 above high normal Not Available [facility] ([facility]) [address] [facility] [place], [address], 06/17/2023 12:38:19 06/16/19 24 06/17/2023 COMP. METAB OLIC PANEL (14) AST (SGOT) 33 IU/L 0-40 Not Available [facility] ([facility]) [address] [place], [address], 06/17/2023 12:38:19 06/16/19 24 06/17/2023 COMP. METAB OLIC PANEL (14) ALT (SGPT) 33 IU/L 0-32 above high normal Not Available [facility] ([facility]) [address] [place], [address], 06/17/2023 12:38:19 06/16/19 24 06/17/2023 TSH RFX ON ABNOR MAL TO FREE T4 TSH 10.800 uIU/m L 0.450- 4.500 above high normal Not Available [facility] ([facility]) [address] [place], [address], 06/17/2023 12:38:20 06/16/19 24 06/17/2023 T4F T4,free (direct) 1.11 NG/dL 0.82-1 .77 Not Available [facility] ([facility]) [address] [place], [address], 06/17/2023 12:38:21 12/02/19 24 12/03/2023 TSH RFX ON ABNOR MAL TO FREE T4 TSH 7.870 uIU/m L 0.450- 4.500 above high normal Not Available [facility] ([facility]) [address] [place], [address], 12/03/2023 05:37:40 12/02/19 24 12/03/2023 T4F T4,free (direct) 1.00 NG/dL 0.82-1 .77 Not Available [facility] ([facility]) [address] [place], [address], 12/03/2023 05:37:41 07/27/19 25 07/27/2024 HGB A1C WITH EAG ESTIM ATION hemoglobin A1C 5.9 % 4.8-5. 6 above high normal Predi abete s: 5.7 - 6.4 Diabe luis: >6.4 Glyce oliver contr ol for adult s with diabe luis: <7.0 Not Available [facility] ([facility]) [address] [place], [address], 07/27/2024 12:37:06 07/27/19 25 07/27/2024 HGB A1C WITH EAG ESTIM ATION estim. avg glu (EAG) 123 mg/dL Not Available [facility] ([facility]) [address] [place], [address], 07/27/2024 12:37:06 07/27/19 25 07/27/2024 ALBUM IN/CR EAT RATIO , RANDO M UR creatinine, urine 259.5 mg/dL notest ab. Not Available [facility] ([facility]) [address] [place], [address], 07/27/2024 12:37:08 07/27/19 25 07/27/2024 ALBUM IN/CR EAT RATIO , RANDO M UR albumin, urine 10.3 ug/mL notest ab. Not Available [facility] ([facility]) [address] [place], [address], 07/27/2024 12:37:08 07/27/19 25 07/27/2024 ALBUM IN/CR EAT RATIO , RANDO M UR alb/creat ratio 4 mg/g_ creat 0-29 Chrystal l: 0 - 29 Moder ately incre ased: 30 - 300 Sever yvette incre ased: >300 Not Available [facility] ([facility]) [address] [place], [address], 07/27/2024 12:37:08 07/27/19 25 07/27/2024 LIPID PANEL cholesterol, total 206 mg/dL 100-19 9 above high normal Not Available [facility] ([facility]) [address] [place], [address], 07/27/2024 12:37:09 07/27/19 25 07/27/2024 LIPID PANEL triglyceride s 204 mg/dL 0-149 above high normal Not Available [facility] ([facility]) [address] [place], [address], 07/27/2024 12:37:09 07/27/19 25 07/27/2024 LIPID PANEL HDL cholesterol 44 mg/dL >39 Not Available [facility] ([facility]) [address] [place], [address], 07/27/2024 12:37:09 07/27/19 25 07/27/2024 LIPID PANEL VLDL cholesterol mitul 36 mg/dL 5-40 Not Available [facility] ([facility]) [address] [place], [address], 07/27/2024 12:37:09 07/27/19 25 07/27/2024 LIPID PANEL LDL chol calc ([facility]) 126 mg/dL 0-99 above high normal Not Available [facility] ([facility]) [address] [place], [address], 07/27/2024 12:37:09 07/27/19 25 07/27/2024 COMP. METAB OLIC PANEL (14) glucose 116 mg/dL 70-99 above high normal Not Available [facility] ([facility]) [address] [place], [address], 07/27/2024 12:37:10 07/27/19 25 07/27/2024 COMP. METAB OLIC PANEL (14) BUN 15 mg/dL 8-27 Not Available [facility] ([facility]) [address] [place], [address], 07/27/2024 12:37:10 07/27/19 25 07/27/2024 COMP. METAB OLIC PANEL (14) creatinine 0.59 mg/dL 0.57-1 .00 Not Available [facility] ([facility]) [address] [facility], [place], [address], 07/27/2024 12:37:10 07/27/19 25 07/27/2024 COMP. METAB OLIC PANEL (14) eGFR 99 mL/mi n/1.7 3 >59 Not Available [facility] ([facility]) [address] [facility], [place], [address], 07/27/2024 12:37:10 07/27/19 25 07/27/2024 COMP. METAB OLIC PANEL (14) BUN/creatini ne ratio 25 12-28 Not Available [facility] ([facility]) [address] [facility], [place], [address], 07/27/2024 12:37:10 07/27/19 25 07/27/2024 COMP. METAB OLIC PANEL (14) sodium 140 mmol/ L 134-14 4 Not Available [facility] ([facility]) [address] [facility], [place], [address], 07/27/2024 12:37:10 07/27/19 25 07/27/2024 COMP. METAB OLIC PANEL (14) potassium 3.9 mmol/ L 3.5-5. 2 Not Available [facility] ([facility]) [address] [facility], [place], [address], 07/27/2024 12:37:10 07/27/19 25 07/27/2024 COMP. METAB OLIC PANEL (14) chloride 105 mmol/ L 96-106 Not Available [facility] ([facility]) [address] [facility], [place], [address], 07/27/2024 12:37:10 07/27/19 25 07/27/2024 COMP. METAB OLIC PANEL (14) carbon dioxide, total 20 mmol/ L 20-29 Not Available [facility] ([facility]) [address] [facility], [place], [address], 07/27/2024 12:37:10 07/27/19 25 07/27/2024 COMP. METAB OLIC PANEL (14) calcium 8.8 mg/dL 8.7-10 .3 Not Available [facility] ([facility]) [address] [facility] [place], [address], 07/27/2024 12:37:10 07/27/19 25 07/27/2024 COMP. METAB OLIC PANEL (14) protein, total 7.6 g/dL 6.0-8. 5 Not Available [facility] ([facility]) [address] [facility] [place], [address], 07/27/2024 12:37:10 07/27/19 25 07/27/2024 COMP. METAB OLIC PANEL (14) albumin 4.0 g/dL 3.9-4. 9 Not Available [facility] ([facility]) [address] [facility] [place], [address], 07/27/2024 12:37:10 07/27/19 25 07/27/2024 COMP. METAB OLIC PANEL (14) globulin, total 3.6 g/dL 1.5-4. 5 Not Available [facility] ([facility]) [address] [facility] [place], [address], 07/27/2024 12:37:10 07/27/19 25 07/27/2024 COMP. METAB OLIC PANEL (14) bilirubin, total 0.2 mg/dL 0.0-1. 2 Not Available [facility] ([facility]) [address] [facility] [place], [address], 07/27/2024 12:37:10 07/27/19 25 07/27/2024 COMP. METAB OLIC PANEL (14) alkaline phosphatase 162 IU/L 44-121 above high normal Not Available [facility] ([facility]) [address] [facility] [place], [address], 07/27/2024 12:37:10 07/27/19 25 07/27/2024 COMP. METAB OLIC PANEL (14) AST (SGOT) 47 IU/L 0-40 above high normal Not Available [facility] ([facility]) [address] [place], [address], 07/27/2024 12:37:10 07/27/19 25 07/27/2024 COMP. METAB OLIC PANEL (14) ALT (SGPT) 42 IU/L 0-32 above high normal Not Available [facility] ([facility]) [address] [place], [address], 07/27/2024 12:37:10 07/27/19 25 07/27/2024 TSH RFX ON ABNOR MAL TO FREE T4 TSH 5.420 uIU/m L 0.450- 4.500 above high normal Not Available [facility] ([facility]) [address] [place], [address], 07/27/2024 12:37:12 07/27/19 25 07/27/2024 T4F T4,free (direct) 1.10 NG/dL 0.82-1 .77 Not Available [facility] ([facility]) [address] [place], [address], 07/27/2024 12:37:13 Result Notes None recorded. Problems Name Problem SNOMED Code Status Onset Date Resolution Date Notes Provider Name and Address Organization Details Recorded Time Impaired glucose toleranc e 8541828 Completed 201602/17/2017 A1C slightly elevated in context of profound acute anemia. Mirna flores MD Attn: Karo quiroga,[address] [facility], [place], [address], [place] - [facility] 7 11:20:13 Screenin g for disorder Active 2018 Mirna flores MD Attn: Karo quiroga,[address], [place], [address], [place] [facility] 9 11:39:26 Seronega tive rheumato id arthriti s 461922506 Active 2019 Mirna flores MD Attn: Accountting g,[address] [facility], [place], [address], [place] [facility] 0 18:28:06 Liver function tests outside referenc e range 011034084 Active 2019 fatty liver, followed with GI in past. 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 Neg EGD, colonosco py 08/2016. Capsular endoscopy pending. Justyn Sun MD Attn: Accountting g,[address] [facility], [place], [address], [place] [facility] 2 20:20:57 Low back pain 525464304 Active 2016 Mirna flores MD Attn: Accountting g,[address] [facility], [place], [address], [place] [facility] 7 14:22:46 Neck pain 36436872 Active 2016 MRI with severe stenosis, referred to neurosurg at [facility]; appt 06/2017 Mirna flores MD Attn: Karo g,[address], [place], [address], [facility] - [facility] 8 14:05:23 Notes:colonoscopy 08/2016 - 1 0 yr fu. Problem Notes None recorded. Procedures Surgical History Date Name Laterality Status Provider Name and Address Organization Details Recorded Time Incision & Drainage completed BOB SPENCER MD Attn: Accounting, [address], [place], [address], [facility] - [facility] 12/16/2021 16:32:42 procedure on neck completed Lakeisha Alva [place] - [place] 10/30/2021 15:00:45 Imaging Results None recorded. Procedure Notes None recorded. Medical Equipment None Reported. Allergies No known drug allergies Medications Name Sig Start Date Stop Date Status Note LastModified by Organization Details LastModified Time cyclobenzap rine 10 mg tablet Take 1 tablet(s) twice a day by oral route as needed. 2024 active Not Available Not Available Not Avai lable venlafaxine ER 75 mg capsule,ext ended release 24 hr TAKE 1 CAPSULE BY MOUTH EVERY DAY 07/26 completed Not Available Not Available Not Available clindamycin HCl 300 mg capsule 10/09 completed Not Available Not Available Not Available trazodone 50 mg tablet TAKE 1 TABLET BY MOUTH EVERY DAY NEEDED 07/26 completed Not Available Not Available Not Available ibuprofen 800 mg tablet 08/11 completed Not Available Not Available Not Available ofloxacin 0.3 % eye drops 10/30 completed Not Available Not Available Not Available hydrocodone 5 mg-acetamin ophen 325 mg tablet TAKE 1 TABLET BY MOUTH EVERY 8 HOURS NEEDED FOR PAIN 09/05 completed Not Available Not Available Not Available sucralfate 1 gram tablet Take 1 tablet 4 times a day by oral route. 08/11 completed Not Available Not Available Not Available ondansetron HCl 4 mg tablet TAKE 1 TABLET BY MOUTH EVERY 8 HOURS NEEDED 07/26 completed Not Available Not Available Not Available prednisone 20 mg tablet TAKE 1 TABLET BY MOUTH TWICE DAILY 12/01 completed Not Available Not Available Not Available peg-electro lyte solution 420 gram oral solution 10/09 completed Not Available Not Available Not Available omeprazole 40 mg capsule,del ayed release TAKE ONE CAPSULE BY MOUTH ONCE DAILY 01/20 completed Not Available Not Available Not Available tramadol 50 mg tablet 10/09 completed Not Available Not Available Not Available acetaminoph en 500 mg tablet Take 2 tablets every 8 hours by oral route. 10/30 completed Not Available Not Available Not Available ketorolac 10 mg tablet 01/20 completed Not Available Not Available Not Available ketorolac 0.5 % eye drops 10/30 completed Not Available Not Available Not Available meloxicam 7.5 mg tablet TAKE 1 TABLET BY MOUTH TWICE DAILY NEEDED 01/19 completed Not Available Not Available Not Available levothyroxi ne 100 mcg tablet TAKE 1 TABLET BY MOUTH EVERY DAY active Not Available Not Available No t Available oxycodone-a cetaminophe n 5 mg-325 mg tablet 12/26 completed Not Available Not Available Not Available levothyroxi ne 88 mcg tablet Take 1 tablet(s) every day by oral route. active Not Available Not Available No t Available famotidine 20 mg tablet Take 1 tablet(s) twice a day by oral route as needed 2024 active Not Available Not Available Not Avai lable prednisolon e acetate 1 % eye drops,suspe nsion SHAKE LIQUID AND INSTILL 1 DROP TO SURGICAL EYE THREE TIMES DAILY STARTING AFTER SURGERY 10/30 completed Not Available Not Available Not Available methotrexat e sodium 2.5 mg tablet 01/19 completed Not Available Not Available Not Available amitriptyli ne 10 mg tablet TAKE 1 TABLET BY MOUTH EVERY DAY 07/26 completed Not Available Not Available Not Available meclizine 25 mg tablet TAKE 1 TABLET BY MOUTH THREE TIMES DAILY NEEDED FOR DIZZINESS 09/05 completed Not Available Not Available Not Available benzonatate 100 mg capsule 05/27 completed Not Available Not Available Not Available levothyroxi ne 50 mcg tablet 06/25 completed Not Available Not Available Not Available cephalexin 500 mg capsule TAKE 1 CAPSULE BY MOUTH EVERY 12 HOURS FOR 7 DAYS 07/26 completed Not Available Not Available Not Available oseltamivir 75 mg capsule 05/27 completed Not Available Not Available Not Available ferrous sulfate 325 mg (65 mg iron) tablet Take one PO BID with orange juice or vitamin C tab to improve absorptio n. 01/20 completed Not Available Not Available Not Available ranitidine 150 mg tablet Take 1 tablet twice a day by oral route as needed. 08/11 completed Not Available Not Available Not Available promethazin e 25 mg tablet 10/09 completed Not Available Not Available Not Available docusate sodium 100 mg capsule TAKE 1 CAPSULE BY MOUTH TWICE DAILY active Not Available Not Available No t Available gabapentin 300 mg capsule TAKE 3 CAPSULES BY MOUTH THREE TIMES DAILY active Not Available Not Available No t Available omeprazole 20 mg capsule,del ayed release 10/09 completed Not Available Not Available Not Available folic acid 1 mg tablet 10/30 completed Not Available Not Available Not Available hydroxyzine HCl 25 mg tablet TAKE 1 TABLET BY MOUTH THREE TIMES DAILY NEEDED 07/26 completed Not Available Not Available Not Available hydrochloro thiazide 25 mg tablet Take 1 tablet every day by oral route. 2024 active Not Available Not Available Not Avai lable hydroxychlo roquine 200 mg tablet 10/30 completed Not Available Not Available Not Available methylpredn isolone 4 mg tablets in a dose pack FOLLOW PACKAGE DIRECTION S 06/25 completed Not Available Not Available Not Available ondansetron 4 mg disintegrat ing tablet 07/14 completed Not Available Not Available Not Available fluticasone propionate 50 mcg/actuati on nasal spray,suspe nsion SHAKE LIQUID AND USE 2 SPRAYS IN EACH NOSTRIL EVERY MORNING 10/30 completed Not Available Not Available Not Available sertraline 50 mg tablet TAKE 1 TABLET BY MOUTH EVERY DAY 10/30 completed Not Available Not Available Not Available dicyclomine 10 mg capsule 08/11 completed Not Available Not Available Not Available metoclopram terrance 10 mg tablet 01/20 completed Not Available Not Available Not Available amoxicillin 875 mg-potassiu m clavulanate 125 mg tablet TAKE 1 TABLET BY MOUTH EVERY 12 HOURS FOR 7 DAYS 06/15 completed Not Available Not Available Not Available meclizine 25 mg chewable tablet CHEW AND SWALLOW 1 TABLET BY MOUTH NEEDED FOR DIZZINESS 07/26 completed Not Available Not Available Not Available nitrofurant oin monohydrate /macrocryst als 100 mg capsule TAKE 1 CAPSULE BY MOUTH EVERY 12 HOURS FOR 5 DAYS WITH FOOD 04/20 completed Not Available Not Available Not Available ibuprofen 01/20 completed Not Available Not Available Not Available diclofenac 1 % topical gel APPLY 2 GRAMS EXTERNALL Y TO THE AFFECTED AREA FOUR TIMES DAILY 10/30 completed Not Available Not Available Not Available Vitals Date Recorded Body height Body mass index (BMI) Body weight Heart rate Body temperature Systolic And Diastolic Provider Name and Address Organization Details Last Updated DateTime 4 154.94 cm 31 kg/m2 78724.1 5 g 66 /min 97.2 [degF] 136/79 mm[Hg] Nanda Card MA [facility] 4 09:49:00 Date Recorded Body height Body mass index (BMI) Body weight Heart rate Body temperature Systolic And Diastolic Provider Name and Address Organization Details Last Updated DateTime 5 154.94 cm 30.6 kg/m2 53810.9 6 g 78 /min 98.2 [degF] 157/82 mm[Hg] Nanda Card MA [facility] 5 11:55:20 Date Recorded Systolic And Diastolic Provider Name and Address Organization Details Last Updated DateTime 12/02/2023 138/70 mm[Hg] Mirna Hurtado MD Attn: [address] [place], [address], [facility] 12/02/2023 12:17:45 Date Recorded Body height Body mass index (BMI) Body weight Heart rate Body temperature Systolic And Diastolic Provider Name and Address Organization Details Last Updated DateTime 4 154.94 cm 30.4 kg/m2 17675.3 7 g 80 /min 98 [degF] 149/82 mm[Hg] Nanda Card MA [facility] 4 11:49:35 Date Recorded Body height Body mass index (BMI) Body weight Heart rate Body temperature Systolic And Diastolic Provider Name and Address Organization Details Last Updated DateTime 3 154.94 cm 30.2 kg/m2 24472.7 8 g 70 /min 97.3 [degF] 133/77 mm[Hg] Nanda Card [place] 3 09:47:25 Social History Question Answer Notes LastModified by Organizat Xunlei Details LastModified Time Tobacco Smoking Status Former Smoker quit in July 2016 Mirna Lakshmi, [employer] null, [place] 07/17/2016 10:10:04 What Is Your Level Of Caffeine Consumption? Occasional Information not available 06/16/2023 What Was The Date Of Your Most Recent Tobacco Screening? 07/26/2024 Information not available 07/26/2024 What Is Your Relationship Status? Information not available 11/27/2021 Are You Sexually Active? No Information not available 11/27/2021 Has Tobacco Cessation Counseling Been Provided? Yes [email or web address] Information not available 10/02/2021 On What Date Was Tobacco Cessation Counseling Provided? 12/12/2021 Information not available 12/12/2021 How Many Years Have You Smoked Tobacco? 5 [email or web address] Information not available 07/17/2016 Sex: Female Functional Status Question Answer Note LastModified by Organizat ion Details LastModified Time Do you use any illicit or recreational drugs? No Information not available 06/16/2023 What is your level of alcohol consumption? None Information not available 11/27/2021 Are you currently employed? No retired Information not available 11/27/2021 Mental Status None recorded. Family History Relationship Description Onset Age of this Age Resolved Age Notes LastModified by Organization Details LastModified Time Mother Diabetes mellitus [email or web address] Not available 2016 10:09:47 Medical History Condition Response Coronary Artery Disease N Other N Atrial Fibrillation N High Blood Pressure N Kidney or Bladder Problems N Thyroid Problems N GI Problems N Depression N COPD N Blood Clots N Skin Problems N Anemia N Heart Attack (IA) N Anxiety Disorder N Diabetes N Muscle, Joint, or Bone Problems Y Seizures/Epilepsy N Acid Reflux (GERD) N Cancer N Stroke N Asthma N Allergies N High Cholesterol N Hepatitis N Liver Disease N Headaches Y Heart Failure N Osteoporosis N Gynecological History Statement/Question Response Menses Monthly N Age at Menarche 14 Current Control Method Hysterectom y Date of Last Mammogram Age at First Child 21 Obstetrics History GPAL:G 5 P 4 0 1 4 Type Value Full Term 4 Spontaneous 1 Living 4 Total 5 Immunizations Vaccine Type Date Status Note Provider Nam e and Address Organization Details Recorded Time zoster recombinant 2 completed BOB SPENCER MD Attn: [address] [place], [place], [address] [place] [address], [place] [facility] 11/27/2021 14:45:21 Influenza, split virus, trivalent, preservative 1 completed BOB SPENCER MD Attn: [address] [place], [address] [place] [address], [place] [facility] 11/27/2021 14:45:21 COVID-19, mRNA, LNP-S, PF, 30 mcg/0.3 mL dose 1 completed BOB SPENCER MD Attn: [address] [place], [address] [place] [address], [place] [facility] 11/27/2021 14:45:21 COVID-19, mRNA, LNP-S, PF, 30 mcg/0.3 mL dose, tari-sucrose 2 completed BOB SPENCER MD Attn: [address] [place], [address] [place] [address], [place] [facility] 11/27/2021 14:45:21 COVID-19, mRNA, LNP-S, PF, 30 mcg/0.3 mL dose 1 completed BOB SPENCER MD Attn: [address] [place], [address] [place] [address], [place] [facility] 11/27/2021 14:45:21 influenza, unspecified formulation 0 completed Not Available [facility] 07/26/2024 11:51:53 Influenza, MDCK, quadrivalent, PF 3 completed Not Available [facility] 07/26/2024 11:51:53 COVID-19, mRNA, LNP-S, bivalent, PF, 30 mcg/0.3 mL dose 3 completed Not Available [facility] 07/26/2024 11:51:53 zoster recombinant 3 completed Not Available [facility] 07/26/2024 11:51:53 Influenza, high-dose, quadrivalent, PF 3 completed Not Available [facility] 07/26/2024 11:51:53 Influenza, split virus, quadrivalent, preservative 9 completed Not Available [facility] 03/25/2019 02:39:49 Influenza, split virus, quadrivalent, preservative 0 completed Brittnee Argueta [place] null, [place] 12/26/2019 13:04:25 Tdap 2 completed BOB SPENCER MD Attn: [address] [place], [address], [facility] - [facility] 12/02/2021 19:22:23 Pneumococcal conjugate PCV20, polysaccharide [id number] conjugate, adjuvant, PF 3 completed Mirna Hurtado MD Attn: [address] [place], [address], [facility] - [facility] 12/10/2022 15:59:43 Influenza, split virus, trivalent, preservative 4 completed Nanda Card [place], [place] 12/02/2023 15:48:29 Influenza, split virus, quadrivalent, preservative 7 completed Ling Sampson [place] null, [place] 01/20/2017 11:11:22 Past Encounters Encounter ID Performer Location Encounter Start Date Encounter Closed Date Diagnosis/Indication Diagnosis SNOMED-CT Code Diagnosis ICD10 Code Diagnosis Note [id number] Mirna marshall MD [facility] (Adult Med) [address] [place] [address] 07/17/2016 09:54:16 07/17/2016 10:39:43 Abdominal pain 24971250 R10.9 Elevated blood-pressure reading without diagnosis of hypertension 357005424 R03.0 Screening for disorder 252824838 Z13.9 Normotensi ve in ER [id number] Mirna marshall MD [facility] (Adult Med) [address] [place] [address] 07/29/2016 09:54:20 07/29/2016 11:56:38 Anemia 426192580 D64.9 Suspect GI loss - GI eval scheduled tomorrow. Hypothyroidism 68723224 E03.9 Right uppe r quadrant pain 255609569 R10.11 Suspect biliary colic, US GB with sludge. Will schedule to see surgery but not optimal surg candidate until eval for source of blood loss. Elevated blood-pressure reading without diagnosis of hypertension 046826420 R03.0 BP high last two visits. Suspect HTN. Plan start medication next visit. Depressive disorder 3548 9007 F32.9 +PHQ, hx deression suboptimal ly treated with medication in past. Wants pursue counseling . [id number] Mirna marshall MD [facility] (Adult Med) [address] [place] [address] 08/14/2016 10:27:28 08/14/2016 10:59:55 Near syncope 387498483 R55 Orthostati c sx? EKG pending. Holter vs stress? Anemia 275982738 D64.9 Suspect GI loss - GI procedures 08/19 Biliary colic 90843270 K 80.50 Suspect colic and abnl CBD on US/CT. Gen surg eval pending. [id number] Mirna marshall MD [facility] (Adult Med) [address] [place] [address] 09/09/2016 11:44:36 09/09/2016 14:20:26 Neck pain 74266885 M54.2 Non radicular, no red flags Low back pain 364399944 M54.5 Doubt radicular. No red flags Right uppe r quadrant pain 146359922 R10.11 Suspect biliary colic, US GB with sludge. Pt to re schedule with general surg. after capsule. Anemia 106691279 D64.9 Improved on oral Fe. Will continue until after GB surg then stop. If persistent anemia off Fe, refer to heme onc. [id number] Mirna marshall MD [facility] (Adult Med) [address] [place] [address] 10/09/2016 09:47:48 10/09/2016 14:21:58 Biliary colic 30419725 K80.50 I reschedawilda d her appointmen t with Dr. Hess for Oct 19 at 100 and gave her info. Chronic neck pain 864552 6443 107 M54.2 Continue with PT Chronic low back pain 27 3895644 M54.5 Continue with PT [id number] Mirna marshall MD [facility] (Adult Med) [address] [place] [address] 01/20/2017 10:55:23 01/20/2017 11:35:26 Generalized aches and pains 36884619 R52 Advised regular aerobic activity, good sleep hygeine. Risks, benefits side effects and time to onset medication reviewed. Indigestion 788282977 K3 0 [id number] Mirna marshall MD [facility] (Adult Med) [address] [place] [address] 02/17/2017 10:42:34 02/17/2017 13:08:03 Cervical radiculitis 78754763 M54.12 Start gabapentin at hs and add am tab after 5 day and noon dose after 5 more days. Low back pain 652902415 M54.5 ? radicular, trial gabapentin Screening for disorder 899413826 Z13.9 [id number] Mirna marshall MD [facility] (Adult Med) [address] [place] [address] 05/27/2017 11:45:22 05/27/2017 13:42:35 Neck pain 72829020 M54.2 Has neurosurg eval pending. Nausea 910666250 R11.0 suspect gastroente ritis. Sx management , bland diet. If not improve 72 hours - labs. [id number] Mirna marshall MD [facility] (Adult Med) [address] [place] [address] 06/30/2018 15:36:49 06/30/2018 16:29:38 Low back pain 122584927 M54.5 On gabapentin but limited benefit. 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 Pain of hip region 18171 002 M25.559 Symmetrical arthritis 25 7733286 M13.80 Not clear dx with lupus, Sjogrens. Need reeval for worsening generalize d sx. Spinal sony nosis in cervical region 76664137 M48.02 no new neuro sx, may need eventual fu with neurosurg again [id number] Mirna marshall MD [facility] (Adult Med) [address] [place] [address] 07/13/2018 08:50:56 07/13/2018 09:42:45 Liver enzymes level above reference range 424599026 R74.8 Elevated blood-pressure reading without diagnosis of hypertension 011787929 R03.0 134/68 on recheck Pain of mu ltiple joints 55835136 M25.50 new rheum referral [id number] Mirna marshall MD [facility] (Adult Med) [address] [place] [address] 08/11/2018 10:28:07 08/11/2018 11:45:20 Primary fibromyalgia syndrome 74664464 M79.7 Hx fibromyalg ia, diffuse myalgia, arthralgia and limited benefit after treatment for inflammato ry arthitis. Encourage aerobic activity, restart sertraline . Stopped for unclear reasons? Screening for disorder 622711538 Z13.9 Non-alcoho lic fatty liver 269364741 K76.0 chronic mild elevation lfts, recent US mild fatty liver. Neck pain 02456274 M54.2 Referred to neurosurge ry again. [id number] Mirna marshall MD [facility] (Adult Med) [address] [place] [address] 01/19/2019 12:06:32 01/19/2019 13:51:42 Alkaline phosphatase above reference range 156081598 R74.8 Return to GI Fibromyalgia 001816201 M 79.7 Active or passive immunization 259229245 Z23 [id number] Mirna marsahll MD [facility] (Adult Med) [address] [place] [address] 07/20/2019 10:07:26 07/20/2019 16:53:08 Hyperlipidemia 13245802 E78.5 Hypothyroidism 08962598 E03.9 Anemia 315930028 D64.9 Resoved previously - recheck Lightheadedness 26987213 8 R42 transient, brief; any recurrence will need addnl evaluation Neck pain 76159641 M54.2 I provided her with contact informatio n to reschedule appt. [id number] Mirna marshall MD [facility] (Peds) [address] [place] [address] 12/26/2019 11:57:51 12/27/2019 22:46:42 Atypical chest pain 805399534 R07.89 Panic attack with chest pain, diaphoresi s. Recurrence should be evaluated in ER. Records requested from ER. Eval with stress test. Anxiety 99068328 F41.9 Trial PRN hydroxyzin e given that episodes very sporadic, daily prophy not optimal yet. Administra tion of influenza vaccine 61106664 Z23 Neck pain 66226840 M54.2 Keep fu with neurosurg and starting pt. Loss of hair 886305458 L 65.9 change in scalp, no clear thinning of hair, no discrete alopecia. Monitor [id number] Mirna marshall MD [facility] (Peds) [address] [place] [address] 02/27/2020 09:05:41 02/28/2020 15:43:34 Neck pain 07054239 M54.2 Chronic - extends into thoracic spine and other than R pinky, no radicular sx. Suspect muscular. Cont with intermitte nt OTC, Gabapentin , home exercises prescribed by PT. Consider chiropract or, trial topical nsaid to neck. Consider trial SSRI or duloxetine next visit. Seronegati ve rheumatoid arthritis 455185397 M06.00 chronic, stable Liver func tion tests outside reference range 345176197 R94.5 chronic stable/imp roved. Due to fatty liver. Cont with efforts to lose weight. [id number] Mirna marshall MD [facility] (Peds) [address] [place] [address] 02/04/2021 13:39:01 02/04/2021 16:35:03 Liver enzymes level above reference range 563556293 R74.8 Dr. Renteria ordered labs at [facility] today. Rheumatoid arthritis 698 [address]171 M06.9 Hasn't seen rheum in a year? Will see if can schedule. If not may need to transfer to [facility] in [place] (if possible). Hypothyroidism 98315236 E03.9 Chronic. 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 Bilateral cataracts 9572 2004 H26.9 Dx by optometris t but never referred. 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 Obesity 007323956 E66.9 Seronegati ve rheumatoid arthritis 141094899 M06.00 chronic, stable - fu with rheum. If needs new referral will let me know Anxiety 38632751 F41.9 Sporadic sx (anxious and nausea). Does well with hydroxyzin e and Zofran [id number] Mirna marshall MD [facility] (Adult Med) [address] [place] [address] 09/04/2021 09:47:32 09/05/2021 06:53:13 Neck pain 86712709 M54.2 with ?radicular sx. Wants see new neuro but understand s may be difficult to get second opinion. Mixed anxi ety and depressive disorder 075684893 F41.8 new dx. Risks, benefits side effects and time to onset medication reviewed. FU 4 weeks Hypothyroidism 37731493 E03.9 Chronic. Labs today Liver func tion tests outside reference range 662980127 R94.5 chronic stable. Suspected due to fatty liver but Fibroscan planned when she left prev GI office. Cont with efforts to lose weight. Refer to new GI Bilateral ulnar nerve disorder 5087154993 5830592 G56.23 Chronic, stable - not resolved with neck surgery. Address after fu with neurosurg Fatigue 51531771 R53.83 [id number] Mirna marshall MD [facility] (Adult Med) [address] [place] [address] 10/16/2021 11:53:51 10/17/2021 10:05:15 Mixed anxiety and depressive disorder 685896985 F41.8 Advised consider retry medication . Risks, benefits side effects and time to onset medication reviewed again at length Pain in right foot 11727 28731 37451 M79.671 arthritis of midfoot? stress fracture? suspect intermitte nt numbness in toes related to inflammati on assoc with pain in midfoot. Trial diclofenac gel. 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 atypical dermatofib kristina? other? wants excision. [id number] MD Chalo Sheets 14 IM [address] [facility] [address] [place] [address] 10/30/2021 14:17:40 11/03/2021 12:44:47 Insomnia 250765380 G47.00 <4 hrs of sleep nightlyHas hard time falling asleep and staying asleepWors ening depression /anxietyHa s tried melatonin with little reliefWill start low dose trazadoneW ill continue to watch liver function Mixed anxi ety and depressive disorder 579669840 F41.8 Pt has history of anx and depression that has been getting worse.JANICE- 7 and PHQ-9 today elevatedSh e was taking sertraline but stopped due to stomach discomfort She also has hx of fibromyalg ia, sero-neg RA with chronic painpoor sleepWill continue to watch liver function Dermoid cyst 797252578 K 09.8 Dif dx dermatofib romaOnset 4 years ago, now getting bigger.Sin gle lesion L lower thigh, mobile, 1.5x1cm, solid, mobile, tender, no discharge, bleeding, no skin change, no dimpling on exam.No history skin cancer, no family history of skin cancer- referral to [facility] procedure clinic for removal Liver func tion tests outside reference range 054829151 R94.5 Elevated LFT'sHas follow up with GI who is managing on nov 18 who is thinking of doing a fibroscanW ill continue to follow tangential ly [id number] MD Chalo HORTON 14 IM [address] [facility] [place] [address] 11/27/2021 13:43:15 12/02/2021 15:49:26 Hypothyroidism 99070393 E03.9 - continue 88mcg levothyrox ine- may change dosage based on TSH results- lowering dose from 100 to 88mcg likely contribute d to her anxiety and sleep improving Adult heal th examination 465831241 Z00.00 - no history of DMII but is due to have HbA1c re-checked - lipid panel from 2 years ago with elevated LDL and trig- patient scheduled to receive shingles, covid, and flu vaccine at her local pharmacy Administra tion of diphtheria, pertussis, and tetanus vaccine 336405273 Z23 Tight chest 86355886 R07 .89 - no prior cardiac history- did have elevated LDL and trig on last lipid panel in 2019- will investigat e for possible acute coronary syndrome with ECG; low on my differenti al- does have history of cervical spine injury and cervical radiculopa thy- no reproducib le pain on exam Abnormal vaginal odor 62 550304 N89.8 HIV screening 817651330 Z11.4 Hyperlipidemia 17196599 E78.5 Body mass index 30+ - obesity 317422493 Z68.30 Dermoid cyst 497845832 K 09.8 - L lower thigh, 1.5x1cm, solid, mobile tender- instructed to schedule for I&D, removal of cyst at [facility] procedure clinic Gynecologi c examination 41980606 Z01.419 - no cervix visualized [id number] MD Chalo HORTON 14 IM [address] [facility] [address] [place], [place] [address], [place] [address] 12/12/2021 10:43:02 12/15/2021 15:17:00 Dermoid cyst 940681327 K09.8 Onset 4 years ago, now getting bigger.Sin gle lesion L lower thigh, mobile, 1.5 x 1cm, solid, mobile, tender, no discharge, bleeding, no skin change, no dimpling on exam.- Have preformed I&D under local anesthetic . No complicati ons, pt educated on proper wound care and follow up. Due to the size of the cyst removal of capsule was not possible. Pt educated cyst may come back. Increased blood pressure 43966793 R03.0 Pt does not have a dx of HTN and is currently not taking any BP medication s. She does not have a previous dx of HTN. She is here today for procedure clinic to have cyst removed and admits to being nervous that it will hurt.- BP in clinic has been >140/90 on most visits at [facility].- Will continue to follow BP and start medication s if appropriat e. [id number] Mirna marshall MD [facility] (Adult Med) [address] [place] [address] 06/25/2022 10:57:26 06/29/2022 15:08:38 Overweight 158801967 E66.3 Seronegati ve rheumatoid arthritis 927524353 M06.00 chronic, stable - fu with rheum. Abdominal pain 30140554 R10.9 Nausea, diminished bowel sounds and increasing ly uncomforta ble/pain in office. Te ER for evaluation - infectious /gastroent eritis, SBO, functional , appy, pancreatit is, gabapentin withdrawal (can be assoc with variety of sx and med ran out 7 days ago) [id number] Mirna marshall MD [facility] (Adult Med) [address] [place] [address] 12/10/2022 09:22:53 12/11/2022 08:19:32 Vertigo 550294636 R42 Chronic intermitte nt, duration of sx atypical for BPPV. Refer to neuro. Nausea and vomiting 1691999 R11.2 Sometimes in conjuntion with vertigo, often not. FU with GI, continue pepcid, trial DC marijuana for month and see if impacts sx. Screening mammography 24 155896 Z12.31 Active or passive immunization 937882206 Z23 [id number] Mirna marshall MD [facility] (Adult Med) [address] [place] [address] 06/16/2023 09:29:41 06/17/2023 08:53:47 Generalized anxiety disorder 90894679 F41.1 Chronic, intermitte nt. Sporadic use of hydroxyzin e Screening mammography 24 083136 Z12.31 Vertigo 533072907 R42 Chronic intermitte nt, duration of sx atypical for BPPV. Resend ENT referral. Pt has copy and will call office. Non-alcoho lic fatty liver 417228819 K76.0 chronic mild elevation lfts, US mild fatty liver last year. Hypothyroidism 32607151 E03.9 Chronic. Labs today Prediabetes 341979873 R7 3.03 Obesity 050005616 E66.9 [id number] Mirna marshall MD [facility] (Adult Med) [address] [place] [address] 12/02/2023 11:33:16 12/06/2023 11:13:48 Vertigo 433738425 R42 Has hx of vertigo in past, saw neuro, mri neg. Now more severe and persistent w/subjecti ve weakness not demonstrat ed on exam. Any perceived saunders in neuro sx should go to ER. MRI and return to neuro Administra tion of influenza vaccine 08767594 Z23 Hypothyroidism 65901983 E03.9 Chronic. Labs today Impaired g lucose tolerance 2536621 R73.02 Headache 60438477 R51.9 Present intermitte ntly but most days for several weeks. Stop APAP, trial TCA at HS. Risks, benefits side effects and time to onset medication reviewed. Obesity 216516402 E66.8 [id number] Mirna marshall MD [facility] (Adult Med) [address] [place] [address] 12/16/2023 09:08:38 12/17/2023 09:42:15 Chronic headache disorder 196749732 G44.89 Advised retry TCA at HS. If sx recur, stop and fu. Vertigo 872232687 R42 Has hx of vertigo in past, saw neuro, mri neg. Now more severe and persistent w/subjecti ve weakness not demonstrat ed on exam. Any perceived change in neuro sx should go to ER. I encouraged her to schedule MRI. [id number] Mirna marshall MD [facility] (Adult Med[facility] [address] [place] [address] 07/26/2024 11:48:49 07/27/2024 10:22:17 Acquired hypothyroidism [id number] E03.9 Chronic. Labs today Frequent headache [id number] 003 R51.9 Present intermitte ntly but most days for several weeks. Stop APAP, trial TCA at HS. Risks, benefits side effects and time to onset medication reviewed. Screening mammography [id number] Z12.31 Essential hypertension [id number] I10 BP Goal: Less than 150/90BP Controlled : noHealthy Weight: 5'1= 100-131 lbsDiscuss ed: Low sodium balanced diet, moderate exercise at least 3-4 times per week for an average of 40 minutes, limiting alcohol to 1 drink per day (F) or 2 drinks per day (M), and smoking cessation if currently smoking.Ne xt Visit: 2week(s)Ri sks, benefits side effects and time to onset medication reviewed. Neck pain [id number] M54.2 Chronic, intermitte nt. Better with Flexeril prn. Prediabetes [id number] R7 3.03 Recheck due Obese class I [id number] 98115 E66.811 Health Concerns Section Related Observation LastModified by Organization Detai ls LastModified Time None Recorded Concern Status LastModified by Organization Details LastModified Time None Recorded Advance Directives Directive None Recorded Payers Insurance Date Sequence Insurance Name Policy Number Policy Clifford Covered Member ID Clifford Member ID Guarantor Name 02/05/2023 1 [facility] (MEDICARE REPLACEMENT HMO) Pili Bates [id number] Pili Bates 07/26/2024 1 [facility] - DOS ON OR AFTER 2020 - DUAL ELIGIBLE (MEDICARE REPLACEMENT/A DVANTAGE - HMO) [id number] Pili Bates [id number] Pili Bates 12/08/2023 [place] REPLACEMENT PRIMARY) Bel Bates [id number] Pili Bates 12/08/2023 2 [place] Pili R Bates [id number] Pili Bates 12/08/2023 3 [facility] - DOS ON OR AFTER 20 (MEDICAID REPLACEMENT - HMO) Bel Bates [id number] Pili Bates 08/06/2024 [place] [facility] Pili Bates [id number] Pili Bates 02/03/2021 1 [facility] - DOS PRIOR TO 2020 (MEDICAID REPLACEMENT - HMO) Bel Bates [id number] Pili Bates 12/10/2022 1 [facility] - DOS ON OR AFTER 20 (MEDICAID REPLACEMENT - HMO) Pili Bates [id number] Pili Bates 10/14/2023 2 [place] OR [place]IC[place] REPLACEMENT PRIMARY) Bel Bates [id number] Pili Bates 06/22/2023 1 [employer] (MEDICARE REPLACEMENT/A DVANTAGE - HMO) Pili Bates [id number] Pili Bates 02/05/2023 1 [place] Pili Bates [id number] Pili Bates 12/15/2022 1 [place] Pili Bates [id number] Pili Bates 10/14/2023 1 [employer] [place] (MEDICARE REPLACEMENT HMO) Pili Bates [id number] Pili Bates 08/09/2024 1 [facility] (MEDICARE REPLACEMENT/A DVANTAGE - HMO) [id number] Pili R Bates [id number] Pili Bates 05/24/2020 1 [facility] (MEDICAID HMO) Bel Bates [id number] Pili Bates 05/24/2020 1 [place] Bel Bates [id number] Pili Bates 12/18/2022 1 [employer] (MEDICARE REPLACEMENT/A DVANTAGE - PPO) Pili Bates [id number] Pili Bates Notes Date Note Type Note Provider Name and Address Organization Details Recorded Time 12/10/2022 text/html Chronic intermittent vertigo for 2 years. Reports rapid head movement provokes profound sensation her eyes are jumping, last for hours sometimes, unrelenting. MRI brain last year wnl. Also c/o chronic intermittent N/V and abd pain, year duration. Last saw GI 1.5 years ago for same and ER visit with CT abd for same 06/2022. Famotidine helps. Smokes pot HS daily Mirna Hurtado MD Attn: Accounting,[address], [place], [address], [facility] 12/10/2022 16:05:47 06/16/2023 text/html 67 yo w/hypothyroid, hx elevated lfts and chronic intermittent vertigo for 3 years, maybe less frequent in recent months. Reports rapid head movement provokes profound sensation her eyes are jumping, last for hours sometimes, unrelenting. MRI brain 2021 wnl. Referred to ent last year but not offered appt. Mirna Hurtado MD Attn: Accounting, [address] , [place], [address], [facility] 06/16/2023 10:28:23 12/02/2023 text/html 68 yo with hx chronic intermittent vertigo with worsening sx in last several weeks, headaches, and subjective generalized weakness that waxes and wanes. No change in vision (baseline is floaters for last year). Tylenol BID not help w/ regard to headache. No trouble swallow, speech. No facial weakness or change in vision. No gait disturbance Mirna Hurtado MD Attn: Accounting, [address] , [place], [address], [facility] 12/02/2023 14:58:38 12/16/2023 text/html 68 yo with chron ic daily jose and vertigo. Trial of low dose amitriptyline started last visit and took once but believes caused marked increase in urination that night. Vertigo unchanged. Has not scheduled MRI yet. Mirna Hurtado MD Attn: Accounting,[address] , [place], [address], [facility] 12/16/2023 11:28:01 07/26/2024 text/html 68 yo with hx chronic intermittent vertigo, chronic headaches, and subjective generalized weakness that waxes and wanes. MRI ordered last year but not completed yet and she needs new order. No new sx. BP consistently > 150 systolic at home, c/w office measure today. No trouble swallow, speech. No facial weakness or change in vision. No gait disturbance Mirna Hurtado MD Attn: Accounting,[address] [facility], [place], [address], [facility] 07/26/2024 13:13:31 OBGyn Episode Ob Episode Information Episode Created Date Number of Fetuses Patient Bloodtype Patient rh Status Prepregnancy Weight lbs Domestic Partner Domestic Partner Phone Father Name Resident Hall Director Status 11/28/19 1 CLOSED Fetus Data First Name Last Name Admitted to NICU Weight (g) Sex Living Outcome Pediatric Complications Fetus ID Race Codes Race Delivery Type [id number] Jorge Calculation Initial Jorge Date Initial Exam Date Initial Exam Provider Initial Ultrasound Date Last Menstrual Period Date Ultra Sound Weeks Gestation 0 Eighteen To Twenty Week Jorge Update Ultra Sound Date Fundal Height At Umbil Quickening Date Ultra Sound Latest Weeks Gestation Final Jorge Confirmed By Final Jorge Confirmed Date Final Jorge Date Ultra Sound Latest Days Gestation 0 0 Menstrual History Last Menstrual Date Menses Monthly On Bcp Conception Prior Menses Frequency Hcg Plus Date Menarche Onset Age Delivery Information Delivery Date Delivery Type Labor Anesthesia Weeks Gestation Incision Type Labor Labor Length Hrs Delivered By Post Complications Tubal Sterilization Discharge Date Comments 8 Discharge Information Feeding Method Contraceptive Method Maternal HG B and HCT Levels Ob Episode Information Episode Created Date Number of Fetuses Patient Bloodtype Patient rh Status Prepregnancy Weight lbs Domestic Partner Domestic Partner Phone Father Name Resident Hall Director Status 11/28/19 1 CLOSED Fetus Data First Name Last Name Admitted to NICU Weight (g) Sex Living Outcome Pediatric Complications Fetus ID Race Codes Race Delivery Type [id number] Jorge Calculation Initial Jorge Date Initial Exam Date Initial Exam Provider Initial Ultrasound Date Last Menstrual Period Date Ultra Sound Weeks Gestation 0 Eighteen To Twenty Week Jorge Update Ultra Sound Date Fundal Height At Umbil Quickening Date Ultra Sound Latest Weeks Gestation Final Jorge Confirmed By Final Jorge Confirmed Date Final Jorge Date Ultra Sound Latest Days Gestation 0 0 Menstrual History Last Menstrual Date Menses Monthly On Bcp Conception Prior Menses Frequency Hcg Plus Date Menarche Onset Age Delivery Information Delivery Date Delivery Type Labor Anesthesia Weeks Gestation Incision Type Labor Labor Length Hrs Delivered By Post Complications Tubal Sterilization Discharge Date Comments 3 Discharge Information Feeding Method Contraceptive Method Maternal HG B and HCT Levels Ob Episode Information Episode Created Date Number of Fetuses Patient Bloodtype Patient rh Status Prepregnancy Weight lbs Domestic Partner Domestic Partner Phone Father Name Resident Hall Director Status 11/28/19 22 1 CLOSED Fetus Data First Name Last Name Admitted to NICU Weight (g) Sex Living Outcome Pediatric Complications Fetus ID Race Codes Race Delivery Type [id number] Jorge Calculation Initial Jorge Date Initial Exam Date Initial Exam Provider Initial Ultrasound Date Last Menstrual Period Date Ultra Sound Weeks Gestation 0 Eighteen To Twenty Week Jorge Update Ultra Sound Date Fundal Height At Umbil Quickening Date Ultra Sound Latest Weeks Gestation Final Jorge Confirmed By Final Jorge Confirmed Date Final Jorge Date Ultra Sound Latest Days Gestation 0 0 Menstrual History Last Menstrual Date Menses Monthly On Bcp Conception Prior Menses Frequency Hcg Plus Date Menarche Onset Age Delivery Information Delivery Date Delivery Type Labor Anesthesia Weeks Gestation Incision Type Labor Labor Length Hrs Delivered By Post Complications Tubal Sterilization Discharge Date Comments 9 Discharge Information Feeding Method Contraceptive Method Maternal HG B and HCT Levels Ob Episode Information Episode Created Date Number of Fetuses Patient Bloodtype Patient rh Status Prepregnancy Weight lbs Domestic Partner Domestic Partner Phone Father Name Resident Hall Director Status 11/28/19 1 CLOSED Fetus Data First Name Last Name Admitted to NICU Weight (g) Sex Living Outcome Pediatric Complications Fetus ID Race Codes Race Delivery Type [id number] Jorge Calculation Initial Jorge Date Initial Exam Date Initial Exam Provider Initial Ultrasound Date Last Menstrual Period Date Ultra Sound Weeks Gestation 0 Eighteen To Twenty Week Jorge Update Ultra Sound Date Fundal Height At Umbil Quickening Date Ultra Sound Latest Weeks Gestation Final Jorge Confirmed By Final Jorge Confirmed Date Final Jorge Date Ultra Sound Latest Days Gestation 0 0 Menstrual History Last Menstrual Date Menses Monthly On Bcp Conception Prior Menses Frequency Hcg Plus Date Menarche Onset Age Delivery Information Delivery Date Delivery Type Labor Anesthesia Weeks Gestation Incision Type Labor Labor Length Hrs Delivered By Post Complications Tubal Sterilization Discharge Date Comments 5 Discharge Information Feeding Method Contraceptive Method Maternal HG B and HCT Levels
--- OUTSIDE RECORDS SUMMARY | 2024-09-14 08:51 | XMS_ITS | Clinical Summary ---
Author Organization [facility] Address [address] [place] [address] Care Team Providers Care Electrical Wiring Lineman Name Role Phone Mirna Hurtado MD Primary Care Provider + Source Comments [facility],non-owned Affiliates and Associated Physician Practices is amultiple site organization consisting of ambulatory clinics and hospital sitesin [place], [place], [place] and [place]. This disclosure is being madepursuant to the Care Everywhere program and may not contain all information available regarding this patient. Last updated 17.[employer] [facility] Allergies No known active allergies Medications * Be aware that medications may not be up to date on this document. Alwaysverify current medications with the patient. gabapentin (NEURONTIN) 300 MG capsule TK 3 CS PO TID 6 8 Active levothyroxine (SYNTHROID) 100 MCG tablet TK 1 T PO QD 0 Active cyclobenzaprine (FLEXERIL) 10 MG tablet Take 1 tablet by mouth 3 times daily as needed for Muscle Spasms 90 tablet 0 Active Additional Information Patient not taking.Reported on 02/20/2020 oxyCODONE-aceta minophen (PERCOCET) 5-325 MG tablet Take 1 tablet by mouth every 4 hours as needed for Pain 90 tablet 0 Active Additional Information Patient not taking.Reported on 02/20/2020 hydroxychloroqu ine (PLAQUENIL) 200 MG tablet 0 Active Active Problems Problem Noted Date Diagnosed Date Cervical myelopathy 10/11/2019 Sensorineural hearing loss, bilateral 09/03/2017 Tinnitus 09/03/2017 Arthralgia 07/20/2017 Anemia 07/24/2016 Immunizations Immunization Administration Dates Next Due INFLUENZA VACCINE 11/20/2019 INFLUENZA VACCINE, CELL CULT URE, QUADR. (FLUCELVAX QUADRIVALENT; 6MO+) (CCIIV4) 12/10/2017 Family History Relation Name Status Comments Father Mother hepatitis Social History Tobacco Use Types Packs/Day Years Used Date Smoking Tobacco: Former Cigarettes 0.1 2 0 07/2015 - 07/2017 Smokeless Tobacco: Never Alcohol Use Standard Drinks/Week Comments No 0 (1 standard drink = 0.6 oz pur e alcohol) Comments No Sex and Gender Information Value Date Recorded Sex Assigned at Not on file Legal Sex Female 5:32 PM [employer] Gender Identity Not on file Sexual Orientation Not on file Last Filed Vital Signs Vital Sign Reading Time Taken Comments Blood Pressure 135/78 02/20/2020 3:04 PM [employer] Pulse 98 02/20/2020 3:04 PM [employer] Temperature 36.3 C (97.3 F) 02/20/2020 3:04 PM [employer] Respiratory Rate 18 02/20/2020 3:04 PM [employer] Oxygen Saturation 98% 02/20/2020 3:04 PM [employer] Inhaled Oxygen Concentration - - Weight 72.8 kg (160 lb 9.6 oz) 02/20/2020 3:04 P M [employer] Height 154.9 cm (5' 1) 02/20/2020 3:04 PM [employer] Body Mass Index 30.35 02/20/2020 3:04 PM [employer] Plan of Treatment Health Maintenance Due Date Last Done Comments BONE DENSITY TESTING 1955 COLOGUARD (AGES 45-75) - COLON CA SCREENING 1957 COLON MONITORING 1957 COLONOSCOPY - COLON CA SCREENING 1957 CT COLONOGRAPHY - COLON CA SCREENING 1957 Colorectal Cancer Screening 1957 FIT - COLON CA SCREENING 1957 FLEX SIG - COLON CA SCREENING 1957 LIPID TESTING 1957 MAMMOGRAM 1957 HEPATITIS C SCREENING 10/23/1975 DTAP/TDAP/TD VACCINES (1 - Tdap) 1976 PNEUMOCOCCAL VACCINE 50+ (1 of 1 - PCV) 10/28/2007 ZOSTER VACCINE (1 of 2) 10/28/2007 SCREENING FOR DIABETES 11/10/2022 0, 10/13/2019, 10/12/2019, Additional history exists COVID-19 VACCINE ( season) 2023 DEPRESSION SCREENING 03/08/2024 INFLUENZA VACCINE (#1) 2024 11/20/2019, 2017 Respiratory Syncytial Virus (RSV) Vaccine Pt: or over 60 yrs (1 - 1-dose 75+ series) 2032 HEPATITIS B VACCINE Aged Out No longe r eligible based on patient's age to complete this topic HIB VACCINE Aged Out No longer eligi ble based on patient's age to complete this topic HPV VACCINE Aged Out No longer eligi ble based on patient's age to complete this topic MENINGOCOCCAL (Group B) VACCINE SHARED DECISION-MAKING Aged Out No longer eligible based on patient's age to complete this topic MENINGOCOCCAL GROUPS A/C/Y/W VACCINE Aged Out No longer eligible based on patient's age to complete this topic Medical Devices Implanted Type Area Manager Plumbing Device Identifier Shelf Expiration Date Model / Serial / Lot Spcr Algrf 12x8mm Vg Thk5mm João Full Implanted:Qty: 1 on 10/11/2019 by Jayden Glass MD at [facility] Spine Cervical [employer] [id number] 04/19/2021 VG1 [id number] / / Spcr Algrf 12x8mm Vg Thk5mm João Full Implanted:Qty: 1 on 10/11/2019 by Jayden Glass MD at [facility] Spine Cervical [employer] [id number] 04/17/2020 VG1 [id number] / / Scrw Laura Ti W/Recess 2.4mm X 6mm Implanted:Qty: 3 on 10/11/2019 by Yusef Carrington MD at [facility] Spine Cervical Synthes Spine [id number] / / 2.4 X 10mm Rescue Screw Implanted:Qty: 1 on 10/11/2019 by Yusef Carrington MD at [facility] Spine Cervical [id number] / / Scrw João Selftap Ti W/Recess 2mm X 4mm Implanted:Qty: 3 on 10/11/2019 by Yusef Carrington MD at [facility] Spine Cervical [employer]ynthe[employer] Spine [id number] / / Scrw João Selftap Ti W/Recess 2mm X 6mm Implanted:Qty: 2 on 10/11/2019 by Yusef Carrington MD at [facility] Spine Cervical [employer]ynthe[employer] Spine [id number] / / Scrw João Selftap Ti W/Recess 2mm X 8mm Implanted:Qty: 1 on 10/11/2019 by Yusef Carrington MD at [facility] Spine Cervical [employer] Spine [id number] / / Plate Mini Ti Dbl Bend 2.0mm 35mm/12mm Implanted:Qty: 2 on 10/11/2019 by Yusef Carrington MD at [facility] Spine Cervical [employer] Spine [id number] / / Procedures Procedure Name Priority Date/Time Associated Diagnosis Comments COMPREHENSIVE METABOLIC PANEL STAT 11/11/2019 3:32 PM CDT from Last 3 Months or Most Recently Relevant to Health Maintenance Results * (ABNORMAL) COMPREHENSIVE METABOLIC PANEL (11/11/2019 3:32 PM CDT) BUN 13 7 - 26 mg/dL 11/11/2019 4:06 PM [facility] Creatinine 0.5(L) 0.6 - 1.2 mg/dL 11/11/2019 4:06 PM [facility] Sodium 141 136 - 145 mmol/L 11/11/2019 4:06 PM [facility] Potassium 4.0 3.5 - 4.5 mmol/L 11/11/2019 4:06 PM [facility] Chloride 105 98 - 107 mmol/L 11/11/2019 4:06 PM [facility] CO2 24 22 - 29 mmol/L 11/11/2019 4:06 PM [facility] Glucose 104 70 - 115 mg/dL 11/11/2019 4:06 PM [facility] Calcium 9.1 8.4 - 10.2 mg/dL 11/11/2019 4:06 PM [facility] Protein Total 8.6(H) 6.0 - 8.3 g/dL 11/11/2019 4:06 PM [facility] Albumin 3.8 3.4 - 5.0 g/dL 11/11/2019 4:06 PM CDT [facility] Bilirubin Total 0.6 0.2 - 1.2 mg/dL 11/11/2019 4:06 PM [facility] Alkaline Phosphatase 155(H) 40 - 150 Units/L 11/11/2019 4:06 PM [facility] ALT 67(H) 0 - 55 Units/L 11/11/2019 4:06 PM [facility] AST 93(H) 5 - 34 Units/L 11/11/2019 4:06 PM [facility] Anion Gap 16 8 - 18 11/11/2019 4:06 PM [facility] BUN/Creatinine Ratio 26(H) 7 - 23 11/11/2019 4:06 PM [facility] Osmolality Calculated 292 270 - 300 mOsm/kg 11/11/2019 4:06 PM [facility] Albumin/Globulin Ratio 0.8(L) 1.1 - 2.3 11/11/2019 4:06 PM [facility] eGFR >60 >60 mL/min/1.7 3 m2 11/11/2019 4:06 PM [facility] Blood BLOOD SPECIMEN / Unknown Venipuncture / Unknown 11/11/2019 3:32 PM CDT 11/11/2019 3:41 PM T Barrington Enriquez MD LAB - CHEMISTRY ORDERABLES Final Result [facility] [address] [place] [address], [facility] [phone] from Last 3 Months or Most Recently Relevant to Health Maintenance Insurance [facility] Advance Directives * Full Code (Latest Code Status on File) Date Activated Date Inactivated Comments 10/11/2019 3:48 PM 10/13/2019 6:13 PM Care Teams Electrical Wiring Lineman Relationship Specialty Start Date End Date Mirna Hurtado MD PCP - General 03/26/17
[2024-09-14 09:01] VITALS: BP 131/91; PULSE 86; RESP 16; TEMP 36.8; O2SAT 99
--- NOTE | 2024-09-14 09:40 | ED.SKABFB ---
HPI - Skin/Abscess/Foreign Bdy General Chief complaint: Skin/Abscess/Foreign Body Stated complaint: rash under neck/lower back pain Time Seen by Provider: 09/14/24 09:40 Source: patient Mode of arrival: ambulatory Limitations: no limitations History of Present Illness HPI narrative: 68-year-old female presented for complaint of itchy red rash under the chin and neck. Onset 4 days Says she thinks it is spreading towards the mouth. Denies lip, tongue, or throat swelling, shortness of breath or wheezing. Denies changes to soap, detergent, lotion, or any other exposures. No one else in the house or any contacts with similar symptoms. no treatment. Patient also reports mid low back pain for 5 days. states pain started after she lifted a heavy jug of water. Says she has Been taking Tylenol and leftover muscle relaxer from previous low back strain. Denies pain radiating into the hips or legs, numbness, tingling, weakness of the lower extremities, or change in gait, saddle paresthesia or loss of bowel or bladder. Related Data Home Medications ?Medication ?Instructions ?Recorded ?Confirmed ?Last Taken ?Type gabapentin 300 mg capsule 300 mg PO TID 02/10/21 08/03/23 08/14/21 08:00 History famotidine 20 mg tablet (Pepcid) 20 mg PO DAILY 03/03/23 08/03/23 Unknown History hydroxyzine HCl 25 mg tablet See Rx Instructions .Route 08/03/23 08/03/23 Unknown History .COMPLEX PRN Anxiety hydrochlorothiazide 25 mg tablet mg 09/14/24 Unknown History levothyroxine 100 mcg tablet mcg 09/14/24 Unknown History Allergies Allergy/AdvReac Type Severity Reaction Status Date / Time No Known Allergies Allergy Verified 09/14/24 09:19 Review of Systems Review of Systems: CONSTITUTIONAL: Denies body aches, fever, chills, or sweats. EYES: Denies visual changes, redness, or discharge. ENT: Denies rhinorrhea, congestion CARDIOVASCULAR: Denies chest pain, palpitations, or edema. RESPIRATORY: Denies cough or dyspnea. GASTROINTESTINAL: Denies abdominal pain, nausea, vomiting, or diarrhea. SKIN: reports rash MUSCULOSKELETAL: reports back pain. NEUROLOGIC: Denies headache, numbness, tingling, or weakness. [facility] Past Medical History Medical History (Updated 09/14/24 @ 09:48 by Daisy Mcintyre, YULISA) Edentulous Arthritis Hypothyroidism Fibromyalgia Surgical History Surgical History Hx of cholecystectomy History of hysterectomy Family History Family History Mother Hepatitis Liver cirrhosis Social History Social History Smoking status: Never smoker Alcohol intake: never Substance use: never Occupation/Education: retired Spiritual care concerns: No Comments At time of signature, I have reviewed and agree with nursing past medical, surgical, social and family history unless otherwise noted. Please see nursing chart for further information. There is no relevant family history pertinent to the presenting complaint Exam Narrative: GENERAL: Well-appearing HEAD: Normocephalic, atraumatic. EYES: conjunctivae clear, and EOMI. ENT: Mucous membranes moist. Oropharynx without edema, erythema or lesions. NECK: Supple. No lymphadenopathy BACK: paraspinal L5 and sacral tenderness with palpation. Normal reflexes to LEs, gait steady. No bruising. CHEST: Clear to auscultation. HEART: Regular rate and rhythm. SKIN: Warm, dry. flaky erythematous patches under the chin/neck area. No vesicles or tenderness. No drainage. NEURO: Alert and oriented x3. Course Course Emergency Course: Patient is aware of diagnosis, understands and agrees to treatment plan. Anticipatory guidance given. Patient agrees to follow-up as directed and is aware of reasons to seek care at the emergency department. Portions of this record may have been created with voice recognition software Level of Care: Express Care Visit Vital Signs Vital signs: Vital Signs Temperature 98.3 F 09/14/24 09:01 Pulse Rate 86 09/14/24 09:01 Respiratory Rate 16 09/14/24 09:01 Blood Pressure 131/91 H 09/14/24 09:01 Pulse Oximetry 99 09/14/24 09:01 Oxygen Delivery Room Air 09/14/24 09:01 Temperature 98.3 F 09/14/24 09:01 Pulse Rate 86 09/14/24 09:01 Respiratory Rate 16 09/14/24 09:01 Blood Pressure 131/91 H 09/14/24 09:01 Pulse Oximetry 99 09/14/24 09:01 Oxygen Delivery Room Air 09/14/24 09:01 Reviewed MDM - Skin/Abscess/Foreign Bdy MDM Narrative Medical decision making narrative: Discussed physical exam findings Consistent with dermatitis under the chin and neck, and acute low back strain. Reviewed prescriptions.. Advised supportive measures and signs/symptoms to go to the ER. Pt is appropriate for outpt treatment and f/u. Differential Diagnosis Differential diagnosis: Likely abscess of skin or subcutaneous tissue, viral exanthem, dermatophytosis, urticaria, herpes zoster, cellulitis, eczema, insect bites, impetigo and contact dermatitis Discharge Plan Discharge Clinical Impression: Dermatitis, Low back pain Patient Disposition: Home Condition: Stable Instructions: Antibiotic Form, Acute Low Back Pain (ED), Dermatitis (ED) Additional Instructions: back: Please follow up with your Primary Care Doctor within 72 hours - call for an appointment. Avoid lifting. pushing. pulling, or anything that worsens the pain. Walking and other gentle exercising several times a week has been shown to improve back pain; bed rest is not recommended. Tylenol 1000mg every 8 hours Steroid as directed Take muscle relaxers as previously prescribed Over the counter pain cream like icy/hot or biofreeze, or Salon pas/lidocaine 4% patch. You may apply heat or cold to the area as needed. If you experience any worsening pain, swelling, numbness, weakness please go to ER. go to the emergency department if you develop problems with bladder or bowel function, weakness or loss of feeling in one or both of your legs, or any other serious concerns. skin: Wash the area with gentle soap and water only. No scented products. Use skin cream such as benadryl or Aquaphor to the site Avoid scratching when possible to prevent worsening of the condition and disruption of the skin that could lead to bacterial infection To relieve itching, place a cool washcloth or some ice over the area that itches, rather than scratching Patient Language: Slovenian Prescriptions: New methylprednisolone [Medrol (Jeffry)] 4 mg tablets,dose pack See Rx Instructions .ROUTE .COMPLEX Qty: 21 0RF Rx Instructions: orally per package directions triamcinolone acetonide 0.1 % cream 1 applic topical BID 7 Days Qty: 30 0RF No Action gabapentin 300 mg Capsule 300 mg PO TID famotidine [Pepcid] 20 mg Tablet 20 mg PO DAILY hydroxyzine HCl 25 mg tablet See Rx Instructions .ROUTE .COMPLEX PRN (Reason: Anxiety) Rx Instructions: as needed cyclobenzaprine 10 mg tablet 10 mg PO TID PRN (Reason: muscle spasm) Qty: 30 0RF levothyroxine 100 mcg tablet hydrochlorothiazide 25 mg tablet Follow-up/Referrals: PHYSICIAN NOT ON STAFF,NONSTAFF [Primary Care Provider] - Time of Disposition: 09:50
== END 2024-09-14 09:53 | disposition home or self-care (01) ==
PROVIDERS: Emergency Provider Nurse Practitioner Family
DX: L30.9 Dermatitis, unspecified (principal); M54.50 Low back pain, unspecified; E03.9 Hypothyroidism, unspecified; M79.7 Fibromyalgia; M19.90 Unspecified osteoarthritis, unspecified site
CPT/HCPCS: 99213; G0463

== ENCOUNTER 2025-02-08 08:07 | Emergency (ER) | payer MEDICARE, SELFPAY ==
[2025-02-08 08:12] VITALS: BP 138/71; PULSE 86; RESP 20; TEMP 36.3; O2SAT 97
--- OUTSIDE RECORDS SUMMARY | 2025-02-08 08:13 | XMS_ITS | Clinical Summary ---
Author Organization [facility] Address [address] [place] [address] Care Team Providers Care Junior Network Administrator Name Role Phone Mirna Hurtado MD Primary Care Provider + Source Comments [facility],non-owned Affiliates and Associated Physician Practices is amultiple site organization consisting of ambulatory clinics and hospital sitesin [place], [place], [place] and [place]. This disclosure is being madepursuant to the Care Everywhere program and may not contain all information available regarding this patient. 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 Gender Identity Not on file Sexual Orientation Not on file Last Filed Vital Signs Vital Sign Reading Time Taken Comments Blood Pressure 135/78 02/20/2020 3:04 PM MANAGER [employer] Pulse 98 02/20/2020 3:04 PM MANAGER [employer]ING Temperature 36.3 C (97.3 F) 02/20/2020 3:04 PM MANAGER [employer]ING Respiratory Rate 18 02/20/2020 3:04 PM MANAGER [employer]ING Oxygen Saturation 98% 02/20/2020 3:04 PM MANAGER [employer]ING Inhaled Oxygen Concentration - - Weight 72.8 kg (160 lb 9.6 oz) 02/20/2020 3:04 P M MANAGER [employer] Height 154.9 cm (5' 1) 02/20/2020 3:04 PM MANAGER [employer]ING Body Mass Index 30.35 02/20/2020 3:04 PM MANAGER [employer]ING Plan of Treatment Health Maintenance Due Date [...] 11/10/2022 0, 10/13/2019, 10/12/2019, Additional history exists DEPRESSION SCREENING 03/08/2024 COVID-19 VACCINE ( season) 2024 INFLUENZA VACCINE (#1) 2024 11/20/2019, 2017 Respiratory [...] this topic Medical Devices Implanted Type Area Psychologist Device Identifier Shelf Expiration Date Model / Serial / Lot Spcr Algrf 12x8mm Vg Thk5mm João Full Implanted:Qty: 1 on 10/11/2019 by Jayden Glass MD at [facility] Spine Cervical [employer] [id number] 04/19/2021 [id number] / / Spcr Algrf 12x8mm Vg Thk5mm João Full Implanted:Qty: 1 on 10/11/2019 by Jayden Glass MD at [facility] Spine Cervical [employer] [id number] 04/17/2020 VG1 [id number] / / Scrw Laura Ti W/Recess 2.4mm X 6mm Implanted:Qty: 3 on 10/11/2019 by Yusef Carrington MD at [facility] Spine Cervical Synthes Spine [id number] / / 2.4 X 10mm Rescue Screw Implanted:Qty: 1 on 10/11/2019 by Yusef Carrington MD at [facility] Spine Cervical [id number] / / Scrw João Selftap Ti W/Recess 2mm X 4mm Implanted:Qty: 3 on 10/11/2019 by Yusef Carrington MD at [facility] Spine Cervical Synthes Spine [id number] / / Scrw João Selftap Ti W/Recess 2mm X 6mm Implanted:Qty: 2 on 10/11/2019 by Yusef Carrington MD at [facility] Spine Cervical Synthes Spine [id number] / / Scrw João Selftap Ti W/Recess 2mm X 8mm Implanted:Qty: 1 on 10/11/2019 by Yusef Carrington MD at [facility] Spine Cervical Synthes Spine [id number] / / Plate Mini Ti Dbl Bend 2.0mm 35mm/12mm Implanted:Qty: 2 on 10/11/2019 by Yusef Carrington MD at [facility] Spine Cervical Synthes Spine [id number] / / Procedures Procedure Name Priority Date/Time Associated Diagnosis Comments COMPREHENSIVE METABOLIC PANEL STAT 11/11/2019 3:32 PM CDT from Last 3 Months or Most Recently Relevant to Health Maintenance Results * (ABNORMAL) COMPREHENSIVE METABOLIC PANEL (11/11/2019 3:32 PM CDT) BUN 13 7 - 26 mg/dL 11/11/2019 4:06 PM [facility] Creatinine 0.5(L) 0.6 - 1.2 mg/dL 11/11/2019 4:06 PM [facility] Sodium 141 136 - 145 mmol/L 11/11/2019 4:06 PM [facility] Potassium 4.0 3.5 - 4.5 mmol/L 11/11/2019 4:06 PM [facility] Chloride 105 98 - 107 mmol/L 11/11/2019 4:06 PM [facility] CO2 24 22 - 29 mmol/L 11/11/2019 4:06 PM [facility] Glucose 104 70 - 115 mg/dL 11/11/2019 4:06 PM [facility] Calcium 9.1 8.4 - 10.2 mg/dL 11/11/2019 4:06 PM [facility] Protein Total 8.6(H) 6.0 - 8.3 g/dL 11/11/2019 4:06 PM [facility] Albumin 3.8 3.4 - 5.0 g/dL 11/11/2019 4:06 PM CDT [facility] Bilirubin Total 0.6 0.2 - 1.2 mg/dL 11/11/2019 4:06 PM [facility] Alkaline Phosphatase 155(H) 40 - 150 Units/L 11/11/2019 4:06 PM [facility] ALT 67(H) 0 - 55 Units/L 11/11/2019 4:06 PM [facility] AST 93(H) 5 - 34 Units/L 11/11/2019 4:06 PM [facility] Anion Gap 16 8 - 18 11/11/2019 4:06 PM [facility] BUN/Creatinine Ratio 26(H) 7 - 23 11/11/2019 4:06 PM [facility] Osmolality Calculated 292 270 - 300 mOsm/kg 11/11/2019 4:06 PM [facility] Albumin/Globulin Ratio 0.8(L) 1.1 - 2.3 11/11/2019 4:06 PM [facility] eGFR >60 >60 mL/min/1.7 3 m2 11/11/2019 4:06 PM [facility] Blood BLOOD SPECIMEN / Unknown Venipuncture / Unknown 11/11/2019 3:32 PM CDT 11/11/2019 3:41 PM T Barrington Enriquez MD LAB - CHEMISTRY ORDERABLES Final Result [facility] [address] [place] [address], [facility] [phone] from Last 3 Months or Most Recently Relevant to Health Maintenance Insurance [facility] Advance Directives * Full Code (Latest Code Status on File) Date Activated Date Inactivated Comments 10/11/2019 3:48 PM 10/13/2019 6:13 PM Care Teams Junior Network Administrator Relationship Specialty Start Date End Date Mirna Hurtado MD PCP - General 03/26/17
--- OUTSIDE RECORDS SUMMARY | 2025-02-08 08:13 | XMS_ITS | Clinical Summary ---
Author Organization [facility] Address [address] [place] [address] Care Team Providers Care Mixing Picker Tender Name Role Phone Mirna Hurtado MD Primary Care Prov ider Allergies No known active allergies Medications gabapentin (NEURONTIN) 300 mg capsule TK 3 CS PO TID 6 8 Active levothyroxine (SYNTHROID, LEVOTHROID) 50 mcg tablet TK 1 T PO QD 6 8 Active sertraline (ZOLOFT) 50 mg tablet daily. 8 Active dicyclomine (BENTYL) 10 mg capsule TK ONE C PO QID PRN 0 8 Active ondansetron ODT (ZOFRAN-ODT) 4 mg disintegrating tablet DIS ONE T PO Q 6 TO 8 H PRN UTD 0 8 Active omeprazole (PriLOSEC) 20 mg capsule Take 20 mg by mouth. 7 Active traMADol (ULTRAM) 50 mg tablet Take 50 mg by mouth. 7 Active diclofenac sodium (VOLTAREN) 1 % gelIndications:Ost eoarthritis Apply 2 g topically 4 (four) times a day For shoulders, hands, and joints that hurt 1 Tube 3 0 Active lidocaine (LMX) 4 % cream Apply topically as needed for pain 30 g 3 0 Active hydrOXYchloroQUINE (PLAQUENIL) 200 mg tablet TAKE 2 TABLETS(400 MG) BY MOUTH DAILY 60 tablet 3 1 Active Active Problems Problem Noted Date Diagnosed Date Tinnitus 09/03/2017 Sensorineural hearing loss, bilateral 09/03/2017 Arthralgia 07/20/2017 Encounter for preventive health examination 06/2016 Anemia 07/24/2016 Pain, dental 07/24/2016 Weakness 07/24/2016 Encounters Date Type Department Care Team Description 01/16/2025 Telephone [facility] Gastroenterology at [address] [place] [address] Christina Dong GI Referral from Last 3 Months Immunizations Immunization Administration Dates Next Due Influenza, Quadrivalent, Jacqueline l Culture-based MDCK, Preservative Free, Antibiotic Free, Intramuscular 12/10/2017 Surgical History Surgery Date Site/Laterality Comments GALLBLADDER SURGERY HYSTERECTOMY Medical History Medical History Date Comments HL (hearing loss) Tinnitus Family History Medical History Relation Name Comments Arthritis Mother Relation Name Status Comments Mother Social History Tobacco Use Types Packs/Day Years Used Date Smoking Tobacco: Former Smokeless Tobacco: Never Alcohol Use Standard Drinks/Week Comments No 0 (1 standard drink = 0.6 oz pur e alcohol) Personal Safety Answer Date Recorded Getting School Help Needed Not on file 04/02 Comments Unknown Sex and Gender Information Value Date Recorded Sex Assigned at Not on file 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 Gender Identity Not on file Sexual Orientation Not on file Last Filed Vital Signs Vital Sign Reading Time Taken Comments Blood Pressure 135/84 09/01/2019 8:31 AM CDT Pulse 86 09/01/2019 8:31 AM CDT Temperature 36.4 C (97.6 F) 09/01/2019 8:31 AM CDT Respiratory Rate - - Oxygen Saturation 97% 07/06/2018 5:41 PM CDT Inhaled Oxygen Concentration - - Weight 77.7 kg (171 lb 3.2 oz) 09/01/2019 8:31 A M CDT Height 154.9 cm (5' 1) 09/01/2019 8:31 AM CDT Body Mass Index 32.35 09/01/2019 8:31 AM CDT Plan of Treatment Not on file Insurance [facility] [employer] MEDICARE HMO [facility] Care Teams Mixing Picker Tender Relationship Specialty Start Date End Date Mirna Hurtado MD PCP - General 04/30/17
[2025-02-08 08:35] LABS: EDUAAPPEAR Cloudy; EDUABILI 1+ (Negative); EDUABLOOD Negative (Negative); EDUACOLOR1 Yellow; EDUAGLUCOSE Negative (Negative); EDUAKETONE Trace (Negative); EDUALEUKO 1+ (Negative); EDUANITRATE Negative (Negative); EDUAPH 5.5; EDUAPROTEIN Trace (Negative); EDUASPGRAVITY 1.025; EDUAUROBILI 0.2
--- NOTE | 2025-02-08 08:42 | ED.FEMALEGU ---
HPI - Female Genitourinary General Chief complaint: Urogenital-Female Stated complaint: uti Time Seen by Provider: 02/08/25 08:38 Source: patient, RN notes reviewed and old records reviewed Mode of arrival: ambulatory Limitations: no limitations History of Present Illness HPI Narrative: 69-year-old female presents to the [facility] with concerns for UTI. Presents for her urgency, frequency and pain with burning as well as peeling like she has some decreased urine output. denies fevers, nausea, vomiting. Denies abdominal pain. Denies any back pain. No treatment prior to arrival Related Data Home Medications ?Medication ?Instructions ?Recorded ?Confirmed ?Last Taken ?Type gabapentin 300 mg capsule 300 mg PO TID 02/10/21 08/03/23 08/14/21 08:00 History famotidine 20 mg tablet (Pepcid) 20 mg PO DAILY 03/03/23 08/03/23 Unknown History hydroxyzine HCl 25 mg tablet See Rx Instructions .Route 08/03/23 08/03/23 Unknown History .COMPLEX PRN Anxiety hydrochlorothiazide 25 mg tablet mg 09/14/24 Unknown History levothyroxine 100 mcg tablet mcg 09/14/24 Unknown History Allergies Allergy/AdvReac Type Severity Reaction Status Date / Time No Known Allergies Allergy Verified 02/08/25 08:24 Review of Systems Review of Systems: All systems reviewed & are unremarkable except as noted in HPI and below Constitutional: Constitutional: Reports no additional constitutional complaints Cardiovascular: Cardiovascular: Reports no additional cardiovascular complaints, Denies chest pain and Denies dyspnea Respiratory: Respiratory: Reports no additional respiratory complaints, Denies chest congestion, Denies cough and Denies dyspnea Genitourinary: Genitourinary: Reports as per HPI and Reports dysuria Musculoskeletal: Musculoskeletal: Reports no additional musculoskeletal complaints Integumentary/Breasts: Skin/Breast: Reports system reviewed and no additional complaints, except as docu PMFSH Past Medical History Medical History Edentulous Arthritis Hypothyroidism Fibromyalgia Surgical History Surgical History Hx of cholecystectomy History of hysterectomy Family History Family History Mother Hepatitis Liver cirrhosis Social History Social History Smoking status: Never smoker Alcohol intake: never Substance use: never Occupation/Education: retired Spiritual care concerns: No Comments At the time of my signature, I reviewed and agree with the nursing past medical, surgical, social, and family history. There is no relevant family history pertinent to the patient complaint. Exam Const: General: cooperative, healthy appearing, comfortable, no acute distress, well developed, alert and well nourished Nutritional Appearance: well nourished Orientation/consciousness: patient oriented x3 Limitations: no limitations HENMT: Head: normal to inspection Mouth: Yes Normal oral and palatal mucosa present, Yes lip normal, Yes tongue normal and Yes moist mucous membranes abnormal Eyes: General: appearance normal, both eyes and all related structures Alignment and Position: alignment normal Neck: Neck: normal visual inspection, full ROM, no lymphadenopathy and no meningeal signs Chest: Chest palpation & inspection: normal inspection of the chest Resp: Effort & Inspection: normal respiratory effort and able to speak in complete sentences Auscultation: clear to auscultation bilaterally, no crackles, no rales, no rhonchi and no wheezes Cardio: Rate: regular rate GI: GI Palp: No abdominal tenderness : General: Yes no CVA tenderness Skin: General skin exam: normal color and no rashes or lesions noted Neuro: General: patient oriented x3, gait normal, moves all extremities and no meningeal signs Cognition (Neuro): normal cognition Speech: normal speech Gait exam (Neuro): Normal gait present Extrem: General: normal to inspection, full ROM, capillary refill normal and normal gait Psych: Appearance: grossly normal and well kempt Mental Status: mental status grossly normal Speech and movement: Normal speech and movement present and Clear speech present Affect: normal affect Attitude: cooperative Course Course Level of Care: Express Care Visit Vital Signs Vital signs: Vital Signs Temperature 97.4 F L 02/08/25 08:12 Pulse Rate 86 02/08/25 08:12 Respiratory Rate 20 02/08/25 08:12 Blood Pressure 138/71 02/08/25 08:12 Pulse Oximetry 97 02/08/25 08:12 Oxygen Delivery Room Air 02/08/25 08:12 Temperature 97.4 F L 02/08/25 08:12 Pulse Rate 86 02/08/25 08:12 Respiratory Rate 20 02/08/25 08:12 Blood Pressure 138/71 02/08/25 08:12 Pulse Oximetry 97 02/08/25 08:12 Oxygen Delivery Room Air 02/08/25 08:12 reviewed MDM MDM Narrative Medical decision making narrative: patient sitting in exam room. Patient with urinary symptoms since this morning. Patient positive leukocytes, will treat with antibiotic. Patient is nontoxic and vitals are stable. Culture sent patient appropriate for outpatient treatment with antibiotic and close follow-up Discharge instructions reviewed with patient, as well as provided in writing per nursing staff. The instructions also include specific and strict return/GO TO THE ER as well as f/u information. All questions have been answered, and the patient deny any further questions with discharge and discharge plan. Some parts of this dictation were generated by voice recognition software and may contain typographical and/or grammatical inaccuracies. Differential Diagnosis Differential Diagnosis: Differential diagnostic considerations for female urogenital? issues include urinary tract infection, bacterial vaginosis, cervicitis, ovarian cyst, vaginitis, STI exposure, ovarian torsion, ectopic , cyst of Bartholin?s gland, cystitis, dysmenorrhea.?? Lab Data Labs: Lab Results 02/08/25 Range/Units 08:28 POC Urine Color Yellow POC Urine Clarity Cloudy POC Urine pH 5.5 POC Ur Specif [place] 1.025 POC Urine Protein Trace (Negative) POC Ur Glucose (UA) Negative (Negative) POC Urine Ketones Trace (Negative) POC Urine Blood Negative (Negative) POC Urine Nitrite Negative (Negative) POC Urine Bilirubin 1+ (Negative) POC Urine Urobilinogen 0.2 POC U Leukocyte Esteras 1+ (Negative) reviewed Critical Care Time Critical Care Time Critical Care Time: No Discharge Plan Discharge Clinical Impression: Urinary tract infection Qualifiers: Urinary tract infection type: acute cystitis Hematuria presence: without hematuria Qualified Code(s): N30.00 - Acute cystitis without hematuria Patient Disposition: Home Condition: Stable Instructions: Antibiotic Form, Urinary Tract Infection in Women (DC) Additional Instructions: Increased water intake Take Tylenol as needed for pain Take antibiotic as prescribed Today your urine dip showed a probability of a UTI. You have been prescribed an antibiotic. Your urine will be sent to our lab for a culture. If at that time a bacteria grows that is not covered by the antibiotic prescribed you will be notified. Follow-up with primary care For new or worsening symptoms go directly to the emergency room Patient Language: Malagasy Prescriptions: New amoxicillin-pot clavulanate 875-125 mg tablet 1 tablet PO Q12H Qty: 10 0RF No Action gabapentin 300 mg Capsule 300 mg PO TID famotidine [Pepcid] 20 mg Tablet 20 mg PO DAILY hydroxyzine HCl 25 mg tablet See Rx Instructions .ROUTE .COMPLEX PRN (Reason: Anxiety) Rx Instructions: as needed levothyroxine 100 mcg tablet hydrochlorothiazide 25 mg tablet Follow-up/Referrals: [facility],Mirna Duenas MD [Primary Care Provider, Unknown] - 2 Weeks Clinical Impression: Urinary tract infection Stand Alone Forms: Work/School Release IP Time of Disposition: 08:44
== END 2025-02-08 08:45 | disposition home or self-care (01) ==
PROVIDERS: Emergency Provider Nurse Practitioner; PCP Family Medicine
DX: N30.00 Acute cystitis without hematuria (principal); M19.90 Unspecified osteoarthritis, unspecified site; E03.9 Hypothyroidism, unspecified
CPT/HCPCS: 81003; 87086; 87186; 99213; G0463